=== PATIENT | female | born 1995 | race Caucasian/White ===

== ENCOUNTER 2016-09-18 | Emergency (ER) | payer MEDICAID, OTHER ==
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
[2016-09-18] MEDS ORDERED: IBUPROFEN 600 MG TABLET PO STA (00:53)
[2016-09-18] MEDS ORDERED: ACETAMINOPHEN 325 MG TABLET PO STA (00:54)
[2016-09-18] MEDS ORDERED: IBUPROFEN 600 MG TABLET PO ONE (01:00)
[2016-09-18] MEDS ORDERED: ACETAMINOPHEN 325 MG TABLET PO ONE (01:00)
[2016-09-18 01:07] VITALS: BP 135/72
[2016-09-18] MEDS ORDERED: HYDROcod/ACETAM 5/325 MG TABLET PO STA (01:52)
[2016-09-18] MEDS ORDERED: HYDROcod/ACETAM 5/325 MG TABLET ONE (01:58)
--- NOTE | 2016-09-18 02:14 | CT Preliminary Report ---
Exam: CT Facial Bones W/O IMPRESSION: 1. Left submandibular space edema. 2. Chronic appearing left maxillary sinus disease. 3. Otherwise normal maxillofacial CT. [facility] SITE ID: [id number]
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
== END 2016-09-18 02:15 | disposition home or self-care (01) ==
LOC: ED
DX: S10.93XA Contusion of unspecified part of neck, initial encounter (principal); Y04.8XXA Assault by other bodily force, initial encounter
CPT/HCPCS: 70486; 99282; 99283; A9270

== ENCOUNTER 2016-09-19 07:13 | Emergency (ER) | payer MEDICAID, OTHER ==
[2016-09-19] MEDS ORDERED: HYDROcod/ACETAM 5/325 MG TABLET PO STA (08:15)
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
[2016-09-19] MEDS ORDERED: HYDROcod/ACETAM 5/325 MG TABLET ONE (08:29)
[2016-09-19 08:35] VITALS: BP 121/64
== END 2016-09-19 08:37 | disposition home or self-care (01) ==
LOC: ED 07:13
DX: S00.83XA Contusion of other part of head, initial encounter (principal); Y08.89XA Assault by other specified means, initial encounter
CPT/HCPCS: 99283; A9270

== ENCOUNTER 2016-11-06 09:10 | Emergency (ER) | payer MEDICAID, OTHER ==
[2016-11-06 09:40] LABS: BILIRUBIN,URINE NEGATIVE (NEGATIVE)
[2016-11-06 09:51] LABS: UA w/ MICROSCOPIC CHARGE YES; UR CULTURE IF IND NOT INDICATED; WBC,URINE 0-3 /HPF (0-5)
[2016-11-06] MEDS ORDERED: DEXAMETHASONE 10 MG/ML VIAL PO STA (10:55)
[2016-11-06] MEDS ORDERED: oxyCOD/ACETAMIN 5 MG/325 MG TABLET PO STA (10:55)
[2016-11-06] MEDS ORDERED: CYCLOBENZAPRINE 10 MG TABLET PO STA (10:55)
[2016-11-06] MEDS ORDERED: LIDOCAINE PATCH 5% TOP STA (10:55)
--- NOTE | 2016-11-06 10:59 | ED Physician Documentation ---
History of Present Illness - Stated complaint Stated Complaint: BACK PAIN - Chief complaint Chief Complaint: Back Pain - Additonal information Additional information: hx from pt 21 f hx low back pain insidiuous onset worsening recently low back pain cristian R > L rad to lat hips and thighs no numbness no weakness except 2/2 pain no incontin hematuria or dysuria no abd pain no fever no dental work surgery IV meds or drugs denies preg Review of Systems Constitutional: denies: Fever, Chills Cardiac: denies: Chest pain / pressure Respiratory: denies: Dyspnea GI: denies: Abdominal Pain : denies: Dysuria, Incontinent, Hematuria, Now EGA Musculoskeletal: reports: Back pain Neurologic: denies: Focal weakness, Numbness Endocrine: denies: Easy bruising / bleeding Immunocompromised: denies: Immunocompromised PD PAST MEDICAL HISTORY - Past Medical History Neuro: Headache/migraine GI: GERD Psych: Depression, Anxiety Musculoskeletal: Other Derm: Psoriasis - Past Surgical History Past Surgical History: Yes HEENT: Tonsil/Adenoidectomy - Present Medications Home Medications: Ambulatory Orders Medication Instructions Recorded Confirmed Doxepin [SINEquan] 75 mg ORAL DAILY 09/18/16 11/06/16 Control 11/06/16 Cyclobenzaprine [Flexeril] 10 mg PO TID PRN #20 tablet 11/06/16 Lidocaine Patch 5% [Lidoderm Patch] 1 each TOP DAILY PRN #10 patch 11/06/16 predniSONE [Deltasone] 40 mg PO DAILY 5 Days 11/06/16 - Allergies Allergies/Adverse Reactions: Allergies Allergy/AdvReac Type Severity Reaction Status Date / Time No Known Drug Allergies Allergy Verified 11/06/16 09:22 - Social History Does the pt smoke?: No Smoking Status: Never smoker Does the pt drink ETOH?: Yes Does the pt have substance abuse?: Yes - Immunizations Immunizations are current?: Yes - POLST Patient has POLST: No POLST Status: Full Code PD ED PE NORMAL - Vitals Vital signs reviewed: Yes - General General: Alert and oriented X 3 - HEENT HEENT: PERRL - Neck Neck: Supple, no meningeal sign - Cardiac Cardiac: RRR - Respiratory Respiratory: No respiratory distress, Clear bilaterally - Abdomen Abdomen: Soft, Non tender, Other (no pulsatile mass) - Back Back: Other (diffuse low back pain, no focal spine pain redness warmth or swelling, limited ROM 2/2 pain) - Neuro Neuro: Other (denies sassle anesthesia, hip flex knee ext foot dorsi plantar great toe all 5/5 patellar DTR 2/4 no clonus, nl sensation, neg SLR cristian (not past knee)) Results - Vitals Vitals: Vital Signs - 24 hr 11/06/16 09:18 Temperature 36.5 C Heart Rate 86 Respiratory 16 Rate Blood Pressure 124/84 H O2 Saturation 96 Oxygen O2 Source Room air - Labs Labs: Laboratory Tests 11/06/16 09:32 Urine Color YELLOW Urine Clarity CLOUDY Urine pH 6.0 Ur Specific [place] >=1.030 H Urine Protein NEGATIVE Urine Glucose (UA) NEGATIVE Urine Ketones NEGATIVE Urine Occult Blood SMALL H Urine Nitrite NEGATIVE Urine Bilirubin NEGATIVE Urine Urobilinogen 0.2 (NORMAL) Ur Leukocyte Esterase NEGATIVE Urine RBC 0-5 Urine WBC 0-3 Ur Squamous Epith Cells MOD Squamous H Amorphous Sediment Marked Urine Bacteria Few Ur Microscopic Review INDICATED Urine Culture Comments NOT INDICATED Departure - Departure Disposition: 01 Home, Self Care Clinical Impression: Back pain Qualifiers: Back pain location: low back pain Chronicity: acute Back pain laterality: bilateral Sciatica presence: with sciatica Sciatica laterality: bilateral sciatica Qualified Code(s): M54.42 - Lumbago with sciatica, left side; M54.41 - Lumbago with sciatica, right side Condition: Good Instructions: ED Neck Back Pain General Prescriptions: predniSONE [Deltasone] 40 mg PO DAILY 5 Days Cyclobenzaprine [Flexeril] 10 mg PO TID PRN #20 tablet PRN Reason: Spasms Lidocaine Patch 5% [Lidoderm Patch] 1 each TOP DAILY PRN #10 patch PRN Reason: Pain Comments: Please rest and ice your back 20 minutes at time As we discussed, plain xrays will not be useful in the scenerio. If you do not improve you may need a MRI but you will need to follow up with [facility] for a recheck to determine if that will be needed Forms: Activity restrictions
[2016-11-06] MEDS ORDERED: oxyCOD/ACETAMIN 5 MG/325 MG TABLET PO ONE (11:05)
[2016-11-06] MEDS ORDERED: LIDOCAINE PATCH 5% TOP ONE (11:06)
[2016-11-06] MEDS ORDERED: DEXAMETHASONE 10 MG/ML VIAL ONE (11:06)
[2016-11-06] MEDS ORDERED: CYCLOBENZAPRINE 10 MG TABLET PO ONE (11:06)
[2016-11-06 11:28] VITALS: BP 122/56
== END 2016-11-06 11:33 | disposition home or self-care (01) ==
LOC: ED 09:10
DX: M54.41 Lumbago with sciatica, right side (principal); K21.9 Gastro-esophageal reflux disease without esophagitis
CPT/HCPCS: 81001; 99283; A9270; 81003; 87086

== ENCOUNTER 2016-11-18 15:33 | Outpatient (CLI) | payer MEDICAID ==
--- NOTE | 2016-11-18 16:09 | XRAY Report ---
TWO VIEW THORACIC SPINE: 11/18/2016 CLINICAL INDICATION: Fall, pain. FINDINGS: Frontal and lateral views of the thoracic spine demonstrate mild S-shaped scoliosis. There is no evidence of compression fracture. The disk spaces are preserved. IMPRESSION: MILD S-SHAPED SCOLIOSIS OF THE THORACIC SPINE. JOB #: [id number] EXT JOB #:[id number]
--- NOTE | 2016-11-18 16:11 | XRAY Report ---
THREE VIEW LUMBAR SPINE: 11/18/2016 CLINICAL INDICATION: Fall, pain. FINDINGS: AP, lateral, and coned down views of the lumbar spine demonstrate normal height and alignm ent of the vertebral bodies. The disk spaces are preserved. There is no evidence of fracture. There i s sacralization of L5, with pseudoarthrosis formation. IMPRESSION: NO EVIDENCE OF FRACTURE. JOB #: [id number] EXT JOB #:[id number]
== END 2016-11-18 15:34 | disposition home or self-care (01) ==
LOC: DI 15:33
PROVIDERS: ATTEND Nurse Practitioner Gerontology
DX: M54.5 Low back pain (principal); M41.84 Other forms of scoliosis, thoracic region
CPT/HCPCS: 72070; 72100

== ENCOUNTER 2017-07-09 14:26 | Emergency (ER) | payer MEDICAID ==
[2017-07-09 14:51] VITALS: BP 124/80
[2017-07-09 15:27] LABS: HCG UR QUAL NEGATIVE
--- NOTE | 2017-07-09 16:29 | XRAY Report ---
EXAM: RIGHT TIBIA/FIBULA RADIOGRAPHY EXAM DATE: 07/09/2017 04:23 PM. CLINICAL HISTORY: Trauma. Fall. Anterior right lower leg mid shaft contusion/pain. COMPARISON: None. TECHNIQUE: 2 views. FINDINGS: Bones: Small plantar calcaneal spur. No fracture or bone lesion. Joints: Normal alignment at the knee and ankle. Soft Tissues: Normal. No evident focal soft tissue swelling. IMPRESSION: No acute bony abnormality. [facility] Referring Provider Line: [phone] SITE ID: [id number]
--- NOTE | 2017-07-09 16:29 | XRAY Preliminary Report ---
Exam: XR TIB/FIB RT IMPRESSION: No acute bony abnormality. [facility] SITE ID: [id number]
--- NOTE | 2017-07-09 16:50 | ED Physician Documentation ---
PD HPI LOWER EXT INJURY - Stated complaint Stated Complaint: RT SWELL LEG PX - Chief complaint Chief Complaint: Ext Problem - History obtained from History obtained from: Patient - History of Present Illness PD HPI LOW EXT INJURY LOCATION: Right, Lower leg Type of injury: Blunt / blow Where injury occurred: Work Timing - onset: Today Timing - duration: Hours Timing - details: Abrupt onset, Still present Improved by: Rest, Immobilization Worsened by: Moving, Palpating Associated symptoms: Swelling, Discolored. No: Weakness, Numbness Similar symptoms before: Has not had sx before Recently seen: Not recently seen - Additional information Additional information: 22 year old female who works for [employer] was getting into the back of her truck today she had her right foot up on the truck went to put her left foot up under her right foot slipped she came down hard on the midshaft of her right tibia. She does a lot of pain associated with this and is having some pain with ambulation pain goes all the way from the foot all the way up to the hip. Review of Systems Constitutional: denies: Fever Eyes: denies: Decreased vision Ears: denies: Ear pain Nose: denies: Congestion Throat: denies: Sore throat Respiratory: denies: Cough GI: denies: Vomiting Musculoskeletal: reports: Extremity pain, Pain with weight bearing. denies: Neck pain, Back pain Neurologic: denies: Generalized weakness, Focal weakness, Numbness PD PAST MEDICAL HISTORY - Past Medical History Past Medical History: Yes GI: GERD Psych: Depression, Anxiety Musculoskeletal: Other Derm: Psoriasis - Past Surgical History Past Surgical History: Yes HEENT: Tonsil/Adenoidectomy - Present Medications Home Medications: Ambulatory Orders Medication Instructions Recorded Confirmed HYDROcod/ACETAM 5/325 [[place] 5/325] 1 - 2 ea PO Q6H PRN #15 tablet 07/09/17 - Allergies Allergies/Adverse Reactions: Allergies Allergy/AdvReac Type Severity Reaction Status Date / Time No Known Drug Allergies Allergy Verified 07/09/17 14:50 - Social History Does the pt smoke?: No Smoking Status: Never smoker Does the pt drink ETOH?: Yes Does the pt have substance abuse?: Yes - Immunizations Immunizations are current?: Yes - POLST Patient has POLST: No POLST Status: Full Code PD ED PE NORMAL - Vitals Vital signs reviewed: Yes (normal ) - General General: No acute distress, Well developed/nourished - HEENT HEENT: Atraumatic, PERRL, EOMI - Respiratory Respiratory: No respiratory distress - Derm Derm: Normal color, Warm and dry, No rash - Extremities Extremities: No deformity, No edema, Other (There is exquisit tenderness to the anterior calf on the right side. There is some ecchymosis present as well. The distal n/v is intact and the knee and hip joint are without pain specifically but with referred pain to the calf. ) - Neuro Neuro: No motor deficit, No sensory deficit Eye Opening: Spontaneous Motor: Obeys Commands Verbal: Oriented GCS Score: 15 - Psych Psych: Normal mood, Normal affect Results - Vitals Vitals: Vital Signs - 24 hr 07/09/17 14:46 Temperature 36.1 C L Heart Rate 78 Respiratory 16 Rate Blood Pressure 124/80 O2 Saturation 99 Oxygen O2 Source Room air - Labs Labs: Laboratory Tests 07/09/17 15:03 Ur Specific [place] >=1.030 H Urine HCG, Qual NEGATIVE - Rads (name of study) right tib/fib Radiology: Prelim report reviewed (Impression: No acute bony abnormality.), EMP read indepedently, See rad report PD MEDICAL DECISION MAKING - ED course Complexity details: considered differential, d/w patient ED course: 22-year-old female with a contusion of the right calf has significant pain associated with this and she is having some difficulty with ambulation. She is placed on some crutches will give her some pain medication and there is no evidence for fracture. She is excused from work for 3 days. Departure - Departure Disposition: 01 Home, Self Care Clinical Impression: Contusion of right calf Qualifiers: Encounter type: initial encounter Qualified Code(s): S80.11XA - Contusion of right lower leg, initial encounter Condition: Stable Instructions: ED Contusion Lower Ext Follow-Up: [facility] [Provider Group] Prescriptions: HYDROcod/ACETAM 5/325 [[place] 5/325] 1 - 2 ea PO Q6H PRN #15 tablet PRN Reason: Pain Forms: Activity restrictions
== END 2017-07-09 17:10 | disposition home or self-care (01) ==
LOC: ED 14:26
DX: S80.11XA Contusion of right lower leg, initial encounter (principal); W22.8XXA Striking against or struck by other objects, initial encounter; Y99.0 Civilian activity done for income or pay; K21.9 Gastro-esophageal reflux disease without esophagitis
CPT/HCPCS: 81025; 99283

== ENCOUNTER 2017-07-15 16:36 | Emergency (ER) | payer MEDICAID ==
--- NOTE | 2017-07-15 16:47 | ED Physician Documentation ---
PD HPI URI - Stated complaint Stated Complaint: SOA - Chief complaint Chief Complaint: Resp - History obtained from History obtained from: Patient - History of Present Illness Timing - onset: How many days ago Timing duration: Days Timing details: Gradual onset, Still present Associated symptoms: Nasal congestion, Dry cough, Dyspnea. No: Fever, Hemoptysis, Chest pain, NVD Contributing factors: COPD / asthma (not ongoing, but intermittent with URIs.). No: Sick contact, Travel, Immunocompromised Similar symptoms before: Diagnosis (URIs with asthma; does not have MDI currently) Recently seen: Not recently seen Review of Systems Constitutional: denies: Fever Nose: reports: Congestion. denies: Rhinorrhea / runny nose Throat: denies: Sore throat Cardiac: denies: Chest pain / pressure Respiratory: reports: Dyspnea, Cough, Wheezing GI: denies: Abdominal Pain, Nausea, Vomiting, Diarrhea : denies: Dysuria, Frequency Skin: denies: Rash, Lesions PD PAST MEDICAL HISTORY - Past Medical History Cardiovascular: None Respiratory: Asthma Neuro: None Endocrine/Autoimmune: None GI: GERD Psych: Depression, Anxiety Musculoskeletal: Other Derm: Psoriasis - Past Surgical History Past Surgical History: Yes HEENT: Tonsil/Adenoidectomy - Present Medications Home Medications: Ambulatory Orders Medication Instructions Recorded Confirmed Albuterol Sulf [Ventolin Hfa 1 - 2 puffs INH Q4HR PRN #1 inhaler 07/15/17 Inhaler] Benzonatate [Tessalon] 100 mg PO TID PRN #25 capsule 07/15/17 Cetirizine [ZyrTEC] 10 mg PO DAILY #20 tablet 07/15/17 Dexamethasone [Decadron] 4 mg PO DAILY #5 tablet 07/15/17 - Allergies Allergies/Adverse Reactions: Allergies Allergy/AdvReac Type Severity Reaction Status Date / Time No Known Drug Allergies Allergy Verified 07/15/17 16:43 - Social History Does the pt smoke?: No Smoking Status: Never smoker Does the pt drink ETOH?: Yes Does the pt have substance abuse?: Yes - Immunizations Immunizations are current?: Yes - POLST Patient has POLST: No POLST Status: Full Code PD ED PE NORMAL - Vitals Vital signs reviewed: Yes - General General: Alert and oriented X 3, No acute distress, Well developed/nourished - HEENT HEENT: Ears normal, Pharynx benign - Neck Neck: Supple, no meningeal sign, No adenopathy - Cardiac Cardiac: RRR, No murmur - Respiratory Respiratory: No respiratory distress. No: Clear bilaterally (diffuse wheezing throughout expiration. ) - Abdomen Abdomen: Soft, Non tender - Back Back: No CVA TTP - Derm Derm: Normal color, Warm and dry - Extremities Extremities: No deformity, No tenderness to palpate, No edema, No calf tenderness / cord - Neuro Neuro: Alert and oriented X 3, No motor deficit, Normal speech Results - Vitals Vitals: Vital Signs - 24 hr 07/15/17 07/15/17 07/15/17 16:42 17:14 17:59 Temperature 36.2 C L Heart Rate 108 H 86 108 H Respiratory 18 22 20 Rate Blood Pressure 137/107 H O2 Saturation 96 07/15/17 18:19 Temperature 36.7 C Heart Rate 95 Respiratory 19 Rate Blood Pressure 129/69 O2 Saturation 95 Oxygen O2 Source Room air PD MEDICAL DECISION MAKING - ED course Complexity details: re-evaluated patient (improved with nebs x 2.), considered differential (consider viral illness versus environmental allergies. ), d/w patient Departure - Departure Disposition: Home, Self Care Clinical Impression: Wheezing Upper respiratory infection Qualifiers: URI type: unspecified URI Qualified Code(s): J06.9 - Acute upper respiratory infection, unspecified Condition: Stable Record reviewed to determine appropriate education?: Yes Instructions: ED Bronchitis Asthmatic Prescriptions: Albuterol Sulf [Ventolin Hfa Inhaler] 1 - 2 puffs INH Q4HR PRN #1 inhaler PRN Reason: Shortness Of Air/Wheezing Benzonatate [Tessalon] 100 mg PO TID PRN #25 capsule PRN Reason: Cough Cetirizine [ZyrTEC] 10 mg PO DAILY #20 tablet Dexamethasone [Decadron] 4 mg PO DAILY #5 tablet Comments: This may be allergies or more likely a chest cold. We treated with anti- inflammatories of steroid called Decadron for 5 more days. Use an albuterol inhaler 2 puffs 4 times a day at least and extra times if needed for wheezing. Continue this for 7-10 days and then to just as needed. Tessalon if needed for cough. Cetirizine for congestion and would help if there is an allergy component. Recheck if not improving over the next several days. It does not sound bacterial and I do not see antibiotics been helpful. Discharge Date/Time: 07/15/17 18:19
[2017-07-15] MEDS ORDERED: BENZONATATE 100 MG CAPSULE PO STA (17:00)
[2017-07-15] MEDS ORDERED: DEXAMETHASONE 10 MG/ML VIAL PO STA (17:00)
[2017-07-15] MEDS ORDERED: ALBUTEROL NEB 2.5 MG/3 ML INH STA ×2 (17:00→17:34)
[2017-07-15] MEDS ORDERED: CETIRIZINE 10 MG TABLET PO STA (17:00)
[2017-07-15 18:21] VITALS: BP 129/69
== END 2017-07-15 18:19 | disposition home or self-care (01) ==
LOC: ED 16:36
DX: R06.2 Wheezing (principal); J06.9 Acute upper respiratory infection, unspecified
CPT/HCPCS: 94640; 94664; 99283; A9270

== ENCOUNTER 2017-07-21 01:07 | Emergency (ER) | payer MEDICAID ==
[2017-07-21] MEDS ORDERED: IPRATROPIUM/ALBUTEROL 3 ML NEB INH STA (01:11)
[2017-07-21] MEDS ORDERED: methylPREDNISolone SUCCINATE 125 MG/2 ML VIAL IVP STA ×2 (01:11→06:36)
[2017-07-21] MEDS ORDERED: ALBUTEROL NEB 2.5 MG/3 ML INH STA ×4 (01:48→05:46)
[2017-07-21] MEDS ORDERED: TERBUTALINE 1 MG/ML VIAL SUBQ ONE (01:48)
[2017-07-21] MEDS ORDERED: MAGNESIUM SULFATE 2 GRAM 2 GM/50 ML BAG IV ONE (01:48)
--- NOTE | 2017-07-21 01:51 | ED Physician Documentation ---
PD HPI DYSPNEA - Stated complaint Stated Complaint: DIFF BREATHING - Chief complaint Chief Complaint: Resp - History obtained from History obtained from: Patient - History of Present Illness Timing - onset: How many days ago (4) Timing - onset during: Rest, Light activity Timing - details: Gradual onset, Still present, Intermittant Inciting event(s): Exposure (ie smoke) Improved by: O2, Inhaler/neb Worsened by: Exertion, Coughing Associated symptoms: Wheezing Similar symptoms before: Work up / diagnostics, Treatment Recently seen: Emergency Dept - Additional information Additional information: Patient is a 22 year old female presenting to the emergency department for wheezing and shortness of breath. Patient was seen in the emergency department about 4 days ago. patient was treated and discharged. patient states that over the last three days she has used almost an entire inhaler. Patient states that she normally has bronchitis once a year. Review of Systems Ten Systems: 10 systems reviewed and negative Respiratory: reports: Dyspnea, Wheezing PD PAST MEDICAL HISTORY - Past Medical History Past Medical History: Yes Cardiovascular: None Respiratory: Asthma Neuro: None Endocrine/Autoimmune: None GI: GERD Psych: Depression, Anxiety Musculoskeletal: Other Derm: Psoriasis - Past Surgical History Past Surgical History: Yes HEENT: Tonsil/Adenoidectomy - Present Medications Home Medications: Ambulatory Orders Medication Instructions Recorded Confirmed Albuterol Sulf [Ventolin Hfa 1 - 2 puffs INH Q4HR PRN #1 inhaler 07/15/17 Inhaler] Benzonatate [Tessalon] 100 mg PO TID PRN #25 capsule 07/15/17 Cetirizine [ZyrTEC] 10 mg PO DAILY #20 tablet 07/15/17 Dexamethasone [Decadron] 4 mg PO DAILY #5 tablet 07/15/17 Albuterol Sulfate [Proventil Hfa 1 - 2 puffs INH Q4H PRN #1 inhaler 07/21/17 Inhaler] predniSONE [Prednisone] 40 mg PO DAILY 5 Days tablet 07/21/17 - Allergies Allergies/Adverse Reactions: Allergies Allergy/AdvReac Type Severity Reaction Status Date / Time No Known Drug Allergies Allergy Verified 07/15/17 16:43 - Social History Does the pt smoke?: No Smoking Status: Never smoker Does the pt drink ETOH?: Yes Does the pt have substance abuse?: Yes - Immunizations Immunizations are current?: Yes - POLST Patient has POLST: No POLST Status: Full Code PD ED PE NORMAL - Vitals Vital signs reviewed: Yes - General General: Alert and oriented X 3 - HEENT HEENT: Atraumatic - Neck Neck: Supple, no meningeal sign - Cardiac Cardiac: RRR - Abdomen Abdomen: Soft - Derm Derm: Normal color, Warm and dry - Extremities Extremities: No deformity, No edema, No calf tenderness / cord - Neuro Neuro: Alert and oriented X 3 Eye Opening: Spontaneous - Psych Psych: Normal mood PD ED PE EXPANDED - Respiratory Respiratory: Accessory mm use, Wheezing, Right upper lobe, Right middle lobe, Right lower lobe, Left upper lobe, Left lower lobe Results - Vitals Vitals: Vital Signs - 24 hr 07/21/17 07/21/17 07/21/17 01:09 01:22 03:29 Temperature 36.6 C Heart Rate 108 H 95 88 Respiratory 26 H 20 18 Rate Blood Pressure 124/56 L 128/63 O2 Saturation 95 97 07/21/17 04:30 Temperature Heart Rate 86 Respiratory 17 Rate Blood Pressure 141/74 H O2 Saturation 94 Oxygen O2 Source Room air - Rads (name of study) chest x-ray Radiology: Final report received (no acute findings) PD MEDICAL DECISION MAKING - ED course Complexity details: reviewed old records, reviewed results, re-evaluated patient , considered differential, d/w patient ED course: Patient was seen and examined at bedside. Patient was started with 6mg duoneb and solumedrol. patient was placed on a monitor. chest x-ray was ordered. When patient returned from imaging the results were reviewed and there were no acute abnormalities. Patient continued to have diffuse wheezing and was treated with 5mg of albuterol, magnesium sulfate and terbutaline. Throughout patient's 6 hr ER stay she ws treated with 20mg of albuterol in total, magnesium , terbutaline and two doses of solumedrol. Patient responded well to the therapy. Upon discharge patient's wheezing had diminished and she was oxygenating well on room air. Patient was stable for discharge with outpatient follow up. - Sepsis Event Current Stage of Sepsis: Ruled out Vital Signs: Vital Signs - 24 hr 07/21/17 07/21/17 07/21/17 01:09 01:22 03:29 Temperature 36.6 C Heart Rate 108 H 95 88 Respiratory 26 H 20 18 Rate Blood Pressure 124/56 L 128/63 O2 Saturation 95 97 07/21/17 04:30 Temperature Heart Rate 86 Respiratory 17 Rate Blood Pressure 141/74 H O2 Saturation 94 Oxygen O2 Source Room air Departure - Departure Disposition: 01 Home, Self Care Clinical Impression: Wheezing Condition: Stable Instructions: ED Bronchitis Asthmatic Follow-Up: primary,care provider [Other] - Within 3 Days Prescriptions: Albuterol Sulfate [Proventil Hfa Inhaler] 1 - 2 puffs INH Q4H PRN #1 inhaler PRN Reason: Shortness Of Air/Wheezing predniSONE [Prednisone] 40 mg PO DAILY 5 Days tablet Comments: You will be on the steroids for the next 5 days. You can use your inhaler up to every two hours as needed but if you are using it more frequently than that or your symptoms are worsening you should return to the emergency department. You should follow up with your doctor early next week and discuss prescribing a nebulizer. Forms: Activity restrictions
--- NOTE | 2017-07-21 01:59 | XRAY Preliminary Report ---
Exam: XR CHEST 2 VIEW X-RAY IMPRESSION: Stable negative 2-view chest radiography. [facility] SITE ID: [id number]
--- NOTE | 2017-07-21 02:14 | XRAY Report ---
EXAM: CHEST RADIOGRAPHY EXAM DATE: 07/21/2017 01:41 AM. CLINICAL HISTORY: Shortness of breath. COMPARISON: Chest CT 09/22/2013, x-ray 06/02/2010. TECHNIQUE: 2 views. FINDINGS: Lungs/Pleura: No focal opacities evident. No pleural effusion. No pneumothorax. Normal volumes. Mediastinum: Heart and mediastinal contours are unremarkable. Other: None. IMPRESSION: Stable negative 2-view chest radiography. [facility] Referring Provider Line: [phone] SITE ID: [id number]
[2017-07-21 06:43] VITALS: BP 132/83
== END 2017-07-21 06:49 | disposition home or self-care (01) ==
LOC: ED 01:07
DX: R06.2 Wheezing (principal); K21.9 Gastro-esophageal reflux disease without esophagitis
CPT/HCPCS: 71046; 96365; 96375; 96376; 99283

== ENCOUNTER 2017-09-13 15:41 | Emergency (ER) | payer OTHER, MEDICAID ==
[2017-09-13] MEDS ORDERED: HYDROcod/ACETAM 5/325 MG TABLET PO STA (16:06)
--- NOTE | 2017-09-13 16:09 | ED Physician Documentation ---
PD HPI LOWER EXT INJURY - Stated complaint Stated Complaint: RT LEG SWELLING/NUMBNESS - Chief complaint Chief Complaint: Ext Problem - History obtained from History obtained from: Patient - History of Present Illness PD HPI LOW EXT INJURY LOCATION: Right (About 2 months ago fell at work and hit [place] on edge of truck. Seen here, xrays were negative. She got better after a couple of weeks and then the pain recurred again, now with a sensation of swelling from the ankle up to the thigh. It is not associated with chest pain or trouble breathing.) Review of Systems Constitutional: denies: Fever, Chills Cardiac: denies: Chest pain / pressure, Palpitations Respiratory: denies: Dyspnea, Cough GI: denies: Abdominal Pain PD PAST MEDICAL HISTORY - Past Medical History Cardiovascular: None Respiratory: Asthma Neuro: None Endocrine/Autoimmune: None GI: GERD Psych: Depression, Anxiety Musculoskeletal: Other Derm: Psoriasis - Past Surgical History Past Surgical History: Yes HEENT: Tonsil/Adenoidectomy - Present Medications Home Medications: Ambulatory Orders Medication Instructions Recorded Confirmed Albuterol Sulf [Ventolin Hfa 1 - 2 puffs INH Q4HR PRN #1 inhaler 07/15/17 Inhaler] Albuterol Sulfate [Proventil Hfa 1 - 2 puffs INH Q4H PRN #1 inhaler 07/21/17 Inhaler] Fexofenadine HCl [Nilsa Allergy] 09/13/17 HYDROcod/ACETAM 5/325 [[place] 5/325] 1 - 2 ea PO Q6H PRN #10 tablet 09/13/17 Ibuprofen [Motrin] 800 mg PO Q8H PRN #30 tablet 09/13/17 - Allergies Allergies/Adverse Reactions: Allergies Allergy/AdvReac Type Severity Reaction Status Date / Time No Known Drug Allergies Allergy Verified 07/15/17 16:43 - Social History Does the pt smoke?: No Smoking Status: Never smoker Does the pt drink ETOH?: Yes Does the pt have substance abuse?: Yes - Immunizations Immunizations are current?: Yes - POLST Patient has POLST: No POLST Status: Full Code PD ED PE NORMAL - Vitals Vital signs reviewed: Yes - General General: Alert and oriented X 3, No acute distress - Extremities Extremities: Other (She kind of has diffuse tenderness that does not follow a specific anatomic structure throughout the right leg without visible pedal edema or discoloration. She has bounding pedal pulses.) - Neuro Neuro: Alert and oriented X 3, Normal speech Results - Vitals Vitals: Vital Signs - 24 hr 09/13/17 15:45 Temperature 36.4 C L Heart Rate 80 Respiratory 18 Rate Blood Pressure 122/57 L O2 Saturation 99 Oxygen O2 Source Room air - Labs Labs: Laboratory Tests 09/13/17 16:20 Ur Specific [place] 1.020 Urine HCG, Qual NEGATIVE - Rads (name of study) RLE duplex Radiology: EMP read contemporaneously (negative) PD MEDICAL DECISION MAKING - Sepsis Event Vital Signs: Vital Signs - 24 hr 09/13/17 15:45 Temperature 36.4 C L Heart Rate 80 Respiratory 18 Rate Blood Pressure 122/57 L O2 Saturation 99 Oxygen O2 Source Room air Departure - Departure Disposition: 01 Home, Self Care Clinical Impression: Right leg pain Condition: Good Record reviewed to determine appropriate education?: Yes Instructions: ED Acute Pain UKO Prescriptions: HYDROcod/ACETAM 5/325 [[place] 5/325] 1 - 2 ea PO Q6H PRN #10 tablet PRN Reason: Pain Ibuprofen [Motrin] 800 mg PO Q8H PRN #30 tablet PRN Reason: PAIN &/OR FEVER Comments: Call your doctor to arrange a follow-up appointment, make the next available appointment. In the interim, return anytime if worse or if new symptoms develop. Forms: Activity restrictions
[2017-09-13 16:58] LABS: HCG UR QUAL NEGATIVE
--- NOTE | 2017-09-13 18:25 | Ultrasound Report ---
Procedure Date: 09/13/2017 Accession Number: [id number] / [id number] Procedure: US - Duplex Ext Veins Right CPT Code: FULL RESULT: EXAM: RIGHT LOWER EXTREMITY VENOUS ULTRASOUND EXAM DATE: 09/13/2017 05:31 PM. CLINICAL HISTORY: Leg pain/swelling. COMPARISON: None. TECHNIQUE: Real-time sonographic vascular imaging was performed by the blood tester fowl through the lower extremity utilizing both color-flow and Doppler spectral analysis. Multiple inbound call center representative static images were saved for review. FINDINGS: Common Femoral Vein (CFV): Normal. CFV-GSV Junction: Normal. Profunda Femoral Vein (PFV): Normal. Femoral Vein (FV) Prox: Normal. Femoral Vein (FV) Mid: Normal. Femoral Vein (FV) Dist: Normal. Popliteal Vein: Normal. Posterior Tibial Veins: Normal. Peroneal Veins: Normal. Contralateral Side CFV: Normal. Other: None. IMPRESSION: No evidence for deep venous thrombosis. [facility]
[2017-09-13 18:26] VITALS: BP 120/60
== END 2017-09-13 18:25 | disposition home or self-care (01) ==
LOC: ED 15:41
DX: M79.661 Pain in right lower leg (principal)
CPT/HCPCS: 81025; 93971; 99283; A9270

== ENCOUNTER 2017-11-29 14:46 | Outpatient (CLI) | payer MEDICAID ==
--- NOTE | 2017-11-29 15:38 | XRAY Report ---
Reason: PAIN IN RIGHT LOWER LEG Procedure Date: 11/29/2017 Accession Number: [id number] / [id number] Procedure: XRN - Tib/Fib RT CPT Code: FULL RESULT: EXAM: RIGHT TIBIA/FIBULA RADIOGRAPHY EXAM DATE: 11/29/2017 03:06 PM. CLINICAL HISTORY: PAIN IN RIGHT LOWER LEG. COMPARISON: None. TECHNIQUE: 2 views. FINDINGS: Bones: No fracture or bone lesion. Joints: The visualized knee and ankle joints are normal. No effusions. Soft Tissues: No soft tissue swelling. IMPRESSION: Negative tibia/fibula radiography. [facility]
== END 2017-11-29 14:47 | disposition home or self-care (01) ==
LOC: DI.N 14:46
PROVIDERS: ATTEND Physician Assistant Medical
DX: M79.661 Pain in right lower leg (principal)

== ENCOUNTER 2017-12-31 11:40 | Emergency (ER) | payer MEDICAID ==
[2017-12-31 11:48] VITALS: BP 128/78
[2017-12-31] MEDS ORDERED: HYDROcod/ACETAM 5/325 MG TABLET PO STA (12:00)
--- NOTE | 2017-12-31 12:07 | ED Physician Documentation ---
PD HPI LOWER EXT INJURY - Stated complaint Stated Complaint: LOWER BACK/R LEG PX - Chief complaint Chief Complaint: Back Pain - History obtained from History obtained from: Patient, Family - History of Present Illness PD HPI LOW EXT INJURY LOCATION: Right (.In June of this year she had an injury getting off or on a work truck. She has had persistent right lower extremity pain since then with workups including Doppler ultrasound and x-rays without pertinent findings. More recently the running diagnosis is sciatica and/or nerve pain. She is in physical therapy for same. She has increased pain today with pain in the right low back radiating into the right leg associated with numbness especially on the great toe side of the right foot. She denies bowel or bladder incontinence or saddle anesthesia. There is no possibility of . She denies fevers. No drug use.) Review of Systems Constitutional: denies: Fever, Chills GI: denies: Abdominal Pain, Nausea, Vomiting : reports: Reviewed and negative PD PAST MEDICAL HISTORY - Past Medical History Cardiovascular: None Respiratory: Asthma Neuro: None Endocrine/Autoimmune: None GI: GERD Psych: Depression, Anxiety Musculoskeletal: Other Derm: Psoriasis - Past Surgical History Past Surgical History: Yes HEENT: Tonsil/Adenoidectomy - Present Medications Home Medications: Ambulatory Orders Medication Instructions Recorded Confirmed Albuterol Sulf [Ventolin Hfa 1 - 2 puffs INH Q4HR PRN #1 inhaler 07/15/17 Inhaler] Albuterol Sulfate [Proventil Hfa 1 - 2 puffs INH Q4H PRN #1 inhaler 07/21/17 Inhaler] Fexofenadine HCl [Nilsa Allergy] 09/13/17 Gabapentin 100 mg PO TID #60 capsule 12/31/17 Hydrocodone/Acetaminophen 1 - 2 tab PO Q6H PRN #20 tablet 12/31/17 [Hydrocodone-Acetamin 5-325 mg] Ibuprofen [Motrin] 800 mg PO Q8H PRN #30 tablet 12/31/17 metFORMIN [Glucophage] 500 mg PO TID 12/31/17 12/31/17 predniSONE [Deltasone] 20 mg PO [id number] #21 tab 12/31/17 - Allergies Allergies/Adverse Reactions: Allergies Allergy/AdvReac Type Severity Reaction Status Date / Time No Known Drug Allergies Allergy Verified 12/31/17 11:47 - Social History Does the pt smoke?: No Smoking Status: Never smoker Does the pt drink ETOH?: Yes Does the pt have substance abuse?: Yes - Immunizations Immunizations are current?: Yes - POLST Patient has POLST: No POLST Status: Full Code PD ED PE NORMAL - Vitals Vital signs reviewed: Yes - General General: Alert and oriented X 3, No acute distress - Back Back: No spinal TTP - Extremities Extremities: Other (She has diminished sensation in the right L4 distribution but not absent sensation. Her reflexes both Achilles and patellar are brisk on both sides and strength is symmetric throughout.) - Neuro Neuro: Alert and oriented X 3, Normal speech Results - Vitals Vitals: Vital Signs - 24 hr 12/31/17 11:45 Temperature 37 C Heart Rate 88 Respiratory 18 Rate Blood Pressure 128/78 O2 Saturation 98 Oxygen O2 Source Room air Departure - Departure Disposition: 01 Home, Self Care Clinical Impression: Sciatica Qualifiers: Laterality: right Qualified Code(s): M54.31 - Sciatica, right side Condition: Good Record reviewed to determine appropriate education?: Yes Instructions: ED Sciatica Prescriptions: Gabapentin 100 mg PO TID #60 capsule Hydrocodone/Acetaminophen [Hydrocodone-Acetamin 5-325 mg] 1 - 2 tab PO Q6H PRN #20 tablet PRN Reason: Pain Ibuprofen [Motrin] 800 mg PO Q8H PRN #30 tablet PRN Reason: PAIN &/OR FEVER predniSONE [Deltasone] 20 mg PO [id number] #21 tab Comments: Follow-up with your doctor, as discussed we are starting you on a low lowest dose of gabapentin which can go up significantly if it is helpful. As discussed also, discuss MRI with your physician if not better in the next month or so with conservative physical therapy.
== END 2017-12-31 12:13 | disposition home or self-care (01) ==
LOC: ED 11:40
DX: M54.31 Sciatica, right side (principal)
CPT/HCPCS: 99283; A9270

== ENCOUNTER 2018-01-06 06:26 | Emergency (ER) | payer MEDICAID ==
[2018-01-06] MEDS ORDERED: LIDOCAINE PATCH 5% TOP STA (07:18)
--- NOTE | 2018-01-06 07:29 | ED Physician Documentation ---
History of Present Illness - Stated complaint Stated Complaint: RT LEG PAIN - Chief complaint Chief Complaint: Ext Problem - Additonal information Additional information: hx from pt 22 f prior back pain and sciatica seen in ED numerous times most recently 6 days ago seen by PMD as well and goes to PT has not been able to get an outpt MRI to ER today for worsening lateral RLE pain, tingling to lower leg knee down lateral aspect, weakness and today urinary incont denies fever no IV IM meds drugs no recent dental work or surgery Review of Systems Constitutional: denies: Fever Cardiac: denies: Chest pain / pressure Respiratory: denies: Dyspnea GI: denies: Abdominal Pain : reports: Incontinent. denies: Now EGA Musculoskeletal: reports: Back pain, Extremity pain Neurologic: reports: Focal weakness, Numbness Endocrine: denies: Easy bruising / bleeding Immunocompromised: denies: Immunocompromised PD PAST MEDICAL HISTORY - Past Medical History Past Medical History: No Cardiovascular: None Respiratory: Asthma Neuro: None Endocrine/Autoimmune: None GI: GERD : None HEENT: None Psych: Depression, Anxiety Musculoskeletal: Other Derm: Psoriasis - Past Surgical History Past Surgical History: Yes HEENT: Tonsil/Adenoidectomy - Present Medications Home Medications: Ambulatory Orders Medication Instructions Recorded Confirmed Albuterol Sulf [Ventolin Hfa 1 - 2 puffs INH Q4HR PRN #1 inhaler 07/15/17 Inhaler] Albuterol Sulfate [Proventil Hfa 1 - 2 puffs INH Q4H PRN #1 inhaler 07/21/17 Inhaler] Fexofenadine HCl [Nilsa Allergy] 09/13/17 Gabapentin 100 mg PO TID #60 capsule 12/31/17 Hydrocodone/Acetaminophen 1 - 2 tab PO Q6H PRN #20 tablet 12/31/17 [Hydrocodone-Acetamin 5-325 mg] Ibuprofen [Motrin] 800 mg PO Q8H PRN #30 tablet 12/31/17 metFORMIN [Glucophage] 500 mg PO TID 12/31/17 12/31/17 predniSONE [Deltasone] 20 mg PO [id number] #21 tab 12/31/17 predniSONE [Deltasone] 20 mg PO [id number] #21 tab 01/06/18 - Allergies Allergies/Adverse Reactions: Allergies Allergy/AdvReac Type Severity Reaction Status Date / Time No Known Drug Allergies Allergy Verified 01/06/18 06:42 - Social History Does the pt smoke?: No Smoking Status: Never smoker Does the pt drink ETOH?: Yes Does the pt have substance abuse?: Yes - Immunizations Immunizations are current?: Yes - POLST Patient has POLST: No POLST Status: Full Code PD ED PE NORMAL - Vitals Vital signs reviewed: Yes - General General: Alert and oriented X 3 - HEENT HEENT: Atraumatic, PERRL - Neck Neck: Supple, no meningeal sign - Cardiac Cardiac: RRR, No murmur - Respiratory Respiratory: No respiratory distress - Abdomen Abdomen: Soft, Non tender - Back Back: No spinal TTP, Other (and no redness warmth swelling) - Derm Derm: Normal color - Extremities Extremities: No tenderness to palpate, No edema - Neuro Neuro: Alert and oriented X 3, induction machine setter 2-12 intact, Other (RLE : hip flexion 3/5 largely due to pain, knee ext 5/5, great toe ext 4/5, foot dorsi plantar flexion 5/5, dec sensation to lateral aspect RLE from knee down, no saddle anesthesia, nl sphincter tone, patellar DTR 1+/4, no clonus, + SLR) Results - Vitals Vitals: Vital Signs - 24 hr 01/06/18 01/06/18 06:38 13:54 Temperature 36.9 C Heart Rate 68 84 Respiratory 17 16 Rate Blood Pressure 127/73 147/87 H O2 Saturation 99 100 Oxygen O2 Source Room air - Labs Labs: Laboratory Tests 01/06/18 01/06/18 01/06/18 07:35 07:35 07:35 WBC 12.8 H RBC 4.47 Hgb 13.4 Hct 41.1 MCV 91.9 MCH 30.0 MCHC 32.7 RDW 13.6 Plt Count 362 MPV 8.6 Neut # (Auto) 9.9 H Lymph # (Auto) 2.0 [place] # (Auto) 0.8 Eos # (Auto) 0.0 Baso # (Auto) 0.1 Absolute Nucleated RBC 0.00 Nucleated RBC % 0.0 ESR 1 Sodium 137 Potassium 3.9 Chloride 106 Carbon Dioxide 25 Anion Gap 6.0 BUN 20 Creatinine 0.5 Estimated GFR (MDRD) 153 Glucose 103 H Calcium 8.5 C-Reactive Protein Serum HCG, Qual NEGATIVE Urine Color Urine Clarity Urine pH Ur Specific [place] Urine Protein Urine Glucose (UA) Urine Ketones Urine Occult Blood Urine Nitrite Urine Bilirubin Urine Urobilinogen Ur Leukocyte Esterase Ur Microscopic Review Urine Culture Comments 01/06/18 01/06/18 07:35 08:23 WBC RBC Hgb Hct MCV MCH MCHC RDW Plt Count MPV Neut # (Auto) Lymph # (Auto) [place] # (Auto) Eos # (Auto) Baso # (Auto) Absolute Nucleated RBC Nucleated RBC % ESR Sodium Potassium Chloride Carbon Dioxide Anion Gap BUN Creatinine Estimated GFR (MDRD) Glucose Calcium C-Reactive Protein < 1.0 Serum HCG, Qual Urine Color YELLOW Urine Clarity CLEAR Urine pH 6.5 Ur Specific [place] 1.025 Urine Protein NEGATIVE Urine Glucose (UA) NEGATIVE Urine Ketones NEGATIVE Urine Occult Blood NEGATIVE Urine Nitrite NEGATIVE Urine Bilirubin NEGATIVE Urine Urobilinogen 0.2 (NORMAL) Ur Leukocyte Esterase NEGATIVE Ur Microscopic Review NOT INDICATED Urine Culture Comments NOT INDICATED - Rads (name of study) MRI spine Radiology: See rad report (large HNP at L45 compressing L5 nerve root, no cauda equina) PD MEDICAL DECISION MAKING - ED course ED course: known sciaitica now progressed to incont will need MRI non con should suffice - no fever or risk factors for epidural abscess unsure of can be done at on a holiday weekend if not will need transfer Departure - Departure Disposition: 01 Home, Self Care Clinical Impression: Sciatica Qualifiers: Laterality: right Qualified Code(s): M54.31 - Sciatica, right side Condition: Good Instructions: ED Sciatica, ED Disk Intervertebral Herniated Prescriptions: predniSONE [Deltasone] 20 mg PO [id number] #21 tab Comments: The MRI shows you have a large herniated disk at L45 compressing the nerve root and causing sciatica You do not need emergent surgery but I recommend your PMD refer you to a security systems specialist. I have prescribed steroids to decrease the nerve inflammation. Continue your gabapentin And you can take tylenol or the vicodin previously prescribed for pain Forms: Activity restrictions Discharge Date/Time: 01/06/18 13:55
[2018-01-06 07:42] LABS: BASOPHILS # (AUTO) 0.1 10^3/uL (0.0-0.1); BASOPHILS % (AUTO) 0.5 %; EOSINOPHILS % (AUTO) 0.2 %; HGB - HEMOGLOBIN 13.4 g/dL (12.0-16.0); LYMPHOCYTES % (AUTO) 15.6 %; MEAN CORPUSCULAR HGB CONC 32.7 g/dL (32.0-36.0); MEAN CORPUSCULAR VOLUME 91.9 fL (81.0-99.0); MEAN PLATELET VOLUME 8.6 fL (7.9-10.8); MONOCYTES # (AUTO) 0.8 10^3/uL (0.0-1.0); MONOCYTES % (AUTO) 6.5 %; NEUTROPHILS # (AUTO) 9.9 10^3/uL (1.5-6.6); NEUTROPHILS % (AUTO) 77.2 %; PLT - PLATELET COUNT 362 10^3/uL (130-450); RED BLOOD COUNT 4.47 10^6/uL (4.20-5.40); RED CELL DISTRIBUTION WIDTH 13.6 % (12.0-15.0); WHITE BLOOD COUNT 12.8 x10^3/uL (4.8-10.8)
[2018-01-06 08:01] LABS: BUN - BLOOD UREA NITROGEN 20 mg/dL (6-20); CALCIUM 8.5 mg/dL (8.5-10.3); CARBON DIOXIDE - CO2 25 mmol/L (21-32); CHLORIDE 106 mmol/L (101-111); CREATININE 0.5 mg/dL (0.4-1.0); GFR - MDRD 153 (>89); GLUCOSE 103 mg/dL (70-100); SODIUM 137 mmol/L (135-145)
[2018-01-06 08:04] LABS: HCG,QUALITATIVE BLOOD NEGATIVE
[2018-01-06] MEDS: DEXAMETHASONE 10 MG/ML VIAL PO STA ×2 (08:14→08:41)
[2018-01-06] MEDS: KETOROLAC 60 MG/2 ML VIAL IVP STA ×2 (08:22→08:43)
[2018-01-06 08:27] LABS: BILIRUBIN,URINE NEGATIVE (NEGATIVE); GLUCOSE, URINE (UA) NEGATIVE (NEGATIVE); KETONES,URINE (UA) NEGATIVE (NEGATIVE); LEUKOCYTE ESTERASE, URINE NEGATIVE (NEGATIVE); NITRITE,URINE NEGATIVE (NEGATIVE); OCCULT BLOOD,URINE NEGATIVE (NEGATIVE); PH,URINE 6.5 PH (5.0-7.5); PROTEIN,URINE NEGATIVE (NEGATIVE); UROBILINOGEN,URINE 0.2 (NORMAL) E.U./dL (NORMAL)
[2018-01-06 08:29] LABS: CLARITY,URINE CLEAR (CLEAR)
[2018-01-06] MEDS ORDERED: KETOROLAC 60 MG/2 ML VIAL IM STA (08:36)
--- NOTE | 2018-01-06 11:23 | MRI Report ---
Reason: back pain RLE pain numb, incontinent Procedure Date: 01/06/2018 Accession Number: [id number] / [id number] Procedure: MRI - Lumbar Spine W/O CPT Code: FULL RESULT: EXAM: MRI LUMBAR SPINE WITHOUT CONTRAST EXAM DATE: 01/06/2018 11:00 AM. CLINICAL HISTORY: Back pain RLE pain numb, incontinent. COMPARISON: 11/18/2016 lumbar and thoracic spine radiographs. TECHNIQUE: Multiplanar, multisequence T1-weighted and fluid-sensitive sequences of the lumbar spine from T12 to S1 without contrast. Other: None. FINDINGS: Spinal Canal: The conus terminates at L1. The conus medullaris and cauda equina are unremarkable. Alignment: No scoliosis or spondylolisthesis. Bone Marrow: There is transitional lumbosacral anatomy, with sacralization of the L5 vertebral body. No gross fractures or bone lesions. No bone marrow replacement. Modic type I endplate degenerative changes at L4-L5. Disk Levels/Facets: T12-L1: Unremarkable. L1-L2: Unremarkable. L2-L3: Unremarkable. L3-L4: Unremarkable. L4-L5: A large right central disk extrusion measures 0.9 x 1.5 cm in cross section and 1.5 cm in craniocaudal dimension, compressing the traversing right L5 nerve root within the lateral recess. There is also mild facet arthropathy with mild bilateral foraminal stenosis. Intervertebral disk height loss with disk desiccation is mild. L5-S1: Unremarkable. Musculature: Normal. No edema or fatty atrophy. Other: The partially visualized retroperitoneum is unremarkable. IMPRESSION: 1. Transitional lumbosacral anatomy, with sacralization of the L5 vertebral body and 4 nonrib-bearing lumbar type vertebral bodies. The lowest lumbar type vertebral body is labeled L4. 2. Large right central disk extrusion at L4-L5 compresses the traversing right L5 nerve root within the lateral recess. Comment: The following findings are so common in adults without low back pain that while we report their presence, they must be interpreted with caution and in the context of the clinical situation. (Reference Ramirok et al, Spine 2001) Prevalence of findings in patients without low back pain: Disk degeneration (any evidence): 92% Disk desiccation/T2 signal loss: 83% Disk height loss: 56% Disk bulge: 64% Disk protrusion: 32% Annular tear/high intensity zone: 38% [facility]
[2018-01-06 13:56] VITALS: BP 147/87
== END 2018-01-06 13:55 | disposition home or self-care (01) ==
LOC: ED 06:26
DX: M54.31 Sciatica, right side (principal); M51.26 Other intervertebral disc displacement, lumbar region
CPT/HCPCS: 36415; 72148; 80048; 81003; 84703; 85025; 85651; 86140; 96372; 99283; A9270; 81001; 87086

== ENCOUNTER 2018-03-16 12:13 | Emergency (ER) | payer MEDICAID ==
[2018-03-16] MEDS ORDERED: RABIES IMMUNE GLOBULIN 300 UNITS/2 ML IM STA (13:01)
[2018-03-16] MEDS ORDERED: RABIES VACCINE 2.5 UNIT SYRINGE IM ONE (13:01)
--- NOTE | 2018-03-16 13:44 | XRAY Report ---
Reason: hand injury Procedure Date: 03/16/2018 Accession Number: [id number] / [id number] Procedure: XR - Hand 3 View RT CPT Code: FULL RESULT: EXAM: RIGHT HAND RADIOGRAPHY EXAM DATE: 03/16/2018 01:24 PM. CLINICAL HISTORY: Dog bite to fifth digit. COMPARISON: None. TECHNIQUE: 3 views. FINDINGS: Bones: No fracture. No bony destruction. Joints: Normal. No subluxations. Soft Tissues: No soft tissue foreign body. IMPRESSION: No fracture or foreign body. [facility]
[2018-03-16] MEDS ORDERED: BUFFERED LIDOCAINE 10 ML SYRINGE SUBQ STA (14:09)
[2018-03-16] MEDS ORDERED: AMOX/CLAV 875 MG/125 MG TABLET PO STA (14:09)
--- NOTE | 2018-03-16 14:25 | ED Physician Documentation ---
PD HPI UPPER EXT INJURY - Stated complaint Stated Complaint: DOG BITE R HAND - Chief complaint Chief Complaint: Laceration - History obtained from History obtained from: Patient - History of Present Illness Location: Right, Finger (Right little finger) Type of injury: Other (Dog bite to the right hand) Where injury occurred: [place] Timing - onset: Today Timing - details: Abrupt onset Severity Comments: moderate Improved by: Nothing Worsened by: Moving Associated symptoms: No: Weakness, Numbness, Tingling Contributing factors: No: Anticoagulated Similar symptoms before: No diagnosis Recently seen: Not recently seen Review of Systems Constitutional: denies: Fever, Fatigue Eyes: denies: Discharge Ears: denies: Ear pain Cardiac: denies: Chest pain / pressure Skin: reports: Laceration (s) Musculoskeletal: reports: Extremity pain PD PAST MEDICAL HISTORY - Past Medical History Past Medical History: Yes Cardiovascular: None Respiratory: Asthma Neuro: None Endocrine/Autoimmune: None GI: GERD : None HEENT: None Psych: Depression, Anxiety Musculoskeletal: Other Derm: Psoriasis - Past Surgical History Past Surgical History: Yes HEENT: Tonsil/Adenoidectomy - Present Medications Home Medications: Ambulatory Orders Medication Instructions Recorded Confirmed Gabapentin 100 mg PO TID #60 capsule 12/31/17 metFORMIN [Glucophage] 500 mg PO TID 12/31/17 12/31/17 Amox/Clav 875/125 [Augmentin] 1 each PO Q12H #20 tablet 03/16/18 DULoxetine [Cymbalta] 20 mg PO DAILY 03/16/18 03/16/18 - Allergies Allergies/Adverse Reactions: Allergies Allergy/AdvReac Type Severity Reaction Status Date / Time No Known Drug Allergies Allergy Verified 03/16/18 12:19 - Social History Does the pt smoke?: No Smoking Status: Never smoker Does the pt drink ETOH?: Yes Does the pt have substance abuse?: Yes - Immunizations Immunizations are current?: Yes - POLST Patient has POLST: No POLST Status: Full Code PD ED PE NORMAL - General General: Alert and oriented X 3, No acute distress - HEENT HEENT: Atraumatic, PERRL, EOMI, Ears normal - Respiratory Respiratory: No respiratory distress - Derm Derm: Other (1.5 cm laceration on the volar side of the right little finger, multiple small puncture wounds) - Extremities Extremities: No deformity. No: No tenderness to palpate (The patient has tenderness of the right little finger, there is normal active range of motion, no evidence of a tendon laceration.) - Neuro Neuro: Alert and oriented X 3 - Psych Psych: Normal affect Results - Vitals Vitals: Vital Signs - 24 hr 03/16/18 12:16 Temperature 36 C L Heart Rate 88 Respiratory 18 Rate Blood Pressure 134/76 H O2 Saturation 99 Oxygen O2 Source Room air - Rads (name of study) XR hand Radiology: Final report received, See rad report Procedures - Laceration (location) Finger right Length in cm: 1.5 Wound type: Linear Neurovascular status: Sensory intact, Motor intact, Vascular intact Tendon involvement: Tendon intact, Tendon Injury Anesthesia: Lidocaine 1% Wound Preparation: Chlorhexadine, Irrigated copiously NS, Wound explored, To the base. No: FB identified, FB removed Skin layer closure: Nylon, Interrupted, Size #-0 - enter number (4.0), Sutures - enter # (2) Other: Patient tolerated well, No complications, Neurovascular intact, Dressing applied, Tetanus UTD Complexity: Simple PD MEDICAL DECISION MAKING - ED course ED course: Given the fact that the patient was bit by a stray dog The patient is unaware of the dogs immunization status the patient was given the rabies immunoglobulin and the vaccine. The patient will need the follow-up 7-day and 21-day rabies vaccine booster. The wound was copiously irrigated and loosely approximated. The patient currently appears appropriate for discharge and ongoing outpatient management. She will be discharged home with Augmentin since this was a dog bite. I discussed with the patient warning signs for infection and recommended having her sutures removed in 7-10 days. The patient will otherwise return to the emergency department for any worsening or any concerns Departure - Departure Disposition: 01 Home, Self Care Clinical Impression: Laceration of hand Qualifiers: Encounter type: initial encounter Foreign body presence: without foreign body Laterality: right Qualified Code(s): S61.411A - Laceration without foreign body of right hand, initial encounter Dog bite Qualifiers: Encounter type: initial encounter Qualified Code(s): W54.0XXA - Bitten by dog, initial encounter Condition: Good Instructions: ED Bite Animal General, ED Laceration All, Rabies Immune Globulin human RIG solution for injection, Rabies, Rabies Vaccine suspension for injection Follow-Up: Elizabeth Main ARNP [Primary Care Provider] - Within 1 week [facility] [Provider Group] Prescriptions: Amox/Clav 875/125 [Augmentin] 1 each PO Q12H #20 tablet Comments: Please follow-up with either your primary care, the [facility] Or this department in 7 days and 21 days for the rabies vaccine series Please have your sutures removed in 7-10 days Please return to the emergency department for worsening symptoms or any concerns
[2018-03-16 15:11] VITALS: BP 111/74
== END 2018-03-16 14:45 | disposition home or self-care (01) ==
LOC: ED 12:13
DX: S61.216A Laceration without foreign body of right little finger without damage to nail, initial encounter (principal); W54.0XXA Bitten by dog, initial encounter; Y92.830 Public park as the place of occurrence of the external cause
CPT/HCPCS: 99283

== ENCOUNTER 2018-03-16 15:47 | Emergency (ER) | payer MEDICAID ==
[2018-03-16] MEDS ORDERED: BUFFERED LIDOCAINE 10 ML SYRINGE SUBQ STA (16:02)
[2018-03-16] MEDS ORDERED: RABIES IMMUNE GLOBULIN 300 UNITS/2 ML IM STA (16:03)
[2018-03-16] MEDS ORDERED: NAPROXEN 250 MG TABLET PO STA (17:16)
[2018-03-16 18:05] VITALS: BP 102/69
--- NOTE | 2018-03-16 18:05 | ED Physician Documentation ---
PD HPI UPPER EXT INJURY - Stated complaint Stated Complaint: FINGER LAC - Chief complaint Chief Complaint: Wound - History obtained from History obtained from: Patient - History of Present Illness Location: Right, Finger Type of injury: Laceration - Additonal information Additional information: The patient was seen earlier for a dog bite to her right little finger, the patient had 2 sutures placed and returns secondary to ongoing bleeding. No other acute injuries. Symptoms are described as moderate. Review of Systems Constitutional: denies: Fever Eyes: denies: Discharge Ears: denies: Ear pain Skin: reports: Laceration (s). denies: Rash Musculoskeletal: reports: Extremity pain PD PAST MEDICAL HISTORY - Past Medical History Cardiovascular: None Respiratory: Asthma Neuro: None Endocrine/Autoimmune: None GI: GERD : None HEENT: None Psych: Depression, Anxiety Musculoskeletal: Other Derm: Psoriasis - Past Surgical History Past Surgical History: Yes HEENT: Tonsil/Adenoidectomy - Present Medications Home Medications: Ambulatory Orders Medication Instructions Recorded Confirmed Gabapentin 100 mg PO TID #60 capsule 12/31/17 metFORMIN [Glucophage] 500 mg PO TID 12/31/17 12/31/17 Amox/Clav 875/125 [Augmentin] 1 each PO Q12H #20 tablet 03/16/18 DULoxetine [Cymbalta] 20 mg PO DAILY 03/16/18 03/16/18 - Allergies Allergies/Adverse Reactions: Allergies Allergy/AdvReac Type Severity Reaction Status Date / Time No Known Drug Allergies Allergy Verified 03/16/18 12:19 - Social History Does the pt smoke?: No Smoking Status: Never smoker Does the pt drink ETOH?: Yes Does the pt have substance abuse?: Yes - Immunizations Immunizations are current?: Yes - POLST Patient has POLST: No POLST Status: Full Code PD ED PE NORMAL - General General: Alert and oriented X 3, No acute distress - HEENT HEENT: Atraumatic, PERRL, EOMI, Ears normal - Derm Derm: Other (There is a well approximated 1.5 cm laceration on the volar little finger on the right hand, there is a brisk bleed. No new area of injury) - Neuro Neuro: Alert and oriented X 3, Normal speech - Psych Psych: Normal affect Results - Vitals Vitals: Vital Signs - 24 hr 03/16/18 03/16/18 15:54 18:04 Temperature 36.7 C 36.6 C Heart Rate 78 72 Respiratory 14 16 Rate Blood Pressure 121/68 102/69 O2 Saturation 100 97 Oxygen O2 Source Room air Procedures - General procedure General procedure: A digital block was done with 1% lidocaine with sodium bicarbonate, Surgicel was applied to the wound and a pressure dressing was applied over top of that PD MEDICAL DECISION MAKING - ED course ED course: The patient was observed in the emergency department for 2 hours after the dressing was placed. Presently the patient appears appropriate for discharge. I advised leaving the dressing on until tomorrow. I discussed warning signs and recommended returning for any worsening or any concerns. Initially, the patient got a small dose of the immunoglobulin and the rest of the dose was given. Also the patient was instructed to get her rabies vaccination course at 3 days, 7 days in 14 days. The patient understands and agrees Departure - Departure Disposition: 01 Home, Self Care Clinical Impression: Finger laceration Qualifiers: Encounter type: initial encounter Finger: little finger Damage to nail status: without damage Foreign body presence: without foreign body Laterality: right Qualified Code(s): S61.216A - Laceration without foreign body of right little finger without damage to nail, initial encounter Condition: Good Instructions: Wound Care, Incision Care Follow-Up: Elizabeth Main ARNP [Primary Care Provider] - Within 3 Days (Please follow-up with your primary care physician for ongoing rabies vaccination. He will require repeat vaccinations at day 3, day 7 and day 14. If they are unable to accommodate you please return back to the emergency department for your vaccination series) Comments: Please return for any worsening or any concerns
== END 2018-03-16 18:09 | disposition home or self-care (01) ==
LOC: ED 15:47
DX: S61.216A Laceration without foreign body of right little finger without damage to nail, initial encounter (principal); W54.0XXA Bitten by dog, initial encounter; Y92.830 Public park as the place of occurrence of the external cause; Z29.14 Encounter for prophylactic rabies immune globulin
CPT/HCPCS: 12001; 73130; 90376; 90471; 90675; 96372; 99283; A9270

== ENCOUNTER 2018-03-18 12:03 | Emergency (ER) | payer MEDICAID ==
[2018-03-18 12:16] VITALS: BP 130/107
[2018-03-18] MEDS ORDERED: AMPICILLIN/SULBACTAM 3 GM in SODIUM CHLORIDE 0.9% MINIBAG 100 ML IV STA (13:16)
--- NOTE | 2018-03-18 13:27 | ED Physician Documentation ---
PD HPI UPPER EXT INJURY - Stated complaint Stated Complaint: RT PINKY PX/DOG - Chief complaint Chief Complaint: Ext Problem - History obtained from History obtained from: Patient - Additonal information Additional information: 23-year-old female presents to the emergency department for evaluation of a possible right little finger infection. The patient sustained a dog bite on March 16, 2018, the patient was treated with the rabies immunoglobulin and rabies vaccine, The wound was aggressively irrigated and the larger laceration had 2 loose sutures placed to help approximate the wound. The patient was given a dose of Augmentin and a prescription for Augmentin. The patient did not pick up attendant the prescription of Augmentin and has missed the last 3 doses and today returns to the emergency department for evaluation because now her little finger is red and she has had drainage from the wound. The patient can actively flex the wound without any difficulty. No new trauma or injury. No fevers or chills. Symptoms are described as moderate Review of Systems Constitutional: denies: Fever, Chills, Fatigue Eyes: denies: Discharge Ears: denies: Ear pain Nose: denies: Rhinorrhea / runny nose Cardiac: denies: Chest pain / pressure Respiratory: denies: Cough GI: denies: Abdominal Pain : denies: Dysuria Skin: reports: Laceration (s) Musculoskeletal: reports: Extremity pain PD PAST MEDICAL HISTORY - Past Medical History Cardiovascular: None Respiratory: Asthma Neuro: None Endocrine/Autoimmune: None GI: GERD : None HEENT: None Psych: Depression, Anxiety Musculoskeletal: Other Derm: Psoriasis - Past Surgical History Past Surgical History: Yes HEENT: Tonsil/Adenoidectomy - Present Medications Home Medications: Ambulatory Orders Medication Instructions Recorded Confirmed Gabapentin 100 mg PO TID #60 capsule 12/31/17 metFORMIN [Glucophage] 500 mg PO TID 12/31/17 12/31/17 Amox/Clav 875/125 [Augmentin] 1 each PO Q12H #20 tablet 03/16/18 DULoxetine [Cymbalta] 20 mg PO DAILY 03/16/18 03/16/18 Amox/Clav 875/125 [Augmentin] 1 each PO Q12H #20 tablet 03/18/18 - Allergies Allergies/Adverse Reactions: Allergies Allergy/AdvReac Type Severity Reaction Status Date / Time No Known Drug Allergies Allergy Verified 03/18/18 12:16 - Social History Does the pt smoke?: No Smoking Status: Never smoker Does the pt drink ETOH?: Yes Does the pt have substance abuse?: Yes - Immunizations Immunizations are current?: Yes - POLST Patient has POLST: No POLST Status: Full Code PD ED PE NORMAL - General General: Alert and oriented X 3, No acute distress - HEENT HEENT: Atraumatic, PERRL, EOMI, Ears normal - Neck Neck: Supple, no meningeal sign - Derm Derm: Other (The wound is approximated and there is a serosanguineous discharge from the wound. There is surrounding erythema which tracks on the volar and dorsal side into the MCP. The patient has full active range of motion of the right hand and right little finger. The patient has no significant tenderness along the flexor tendon sheath. The patient can tolerate passive flexion. The digit is swollen but very minimally swollen and has not a sausage digit) - Extremities Extremities: No deformity - Neuro Neuro: Alert and oriented X 3, Normal speech Results - Vitals Vitals: Vital Signs - 24 hr 03/18/18 12:13 Temperature 36.0 C L Heart Rate 76 Respiratory 16 Rate Blood Pressure 130/107 H O2 Saturation 100 Oxygen O2 Source Room air - Labs Labs: Laboratory Tests 03/18/18 03/18/18 03/18/18 13:40 13:40 13:40 WBC 9.1 RBC 4.57 Hgb 14.0 Hct 40.6 MCV 88.8 MCH 30.7 MCHC 34.6 RDW 12.8 Plt Count 322 MPV 8.7 Neut # (Auto) 6.4 Lymph # (Auto) 1.8 [place] # (Auto) 0.6 Eos # (Auto) 0.2 Baso # (Auto) 0.1 Absolute Nucleated RBC 0.00 Nucleated RBC % 0.0 ESR 7 Sodium 139 Potassium 4.1 Chloride 109 Carbon Dioxide 21 Anion Gap 9.0 BUN 13 Creatinine 0.5 Estimated GFR (MDRD) 152 Glucose 106 H Calcium 9.0 Total Bilirubin 0.5 AST 22 ALT 18 Alkaline Phosphatase 51 C-Reactive Protein Total Protein 7.6 Albumin 4.2 Globulin 3.4 Albumin/Globulin Ratio 1.2 Lipase 34 03/18/18 13:40 WBC RBC Hgb Hct MCV MCH MCHC RDW Plt Count MPV Neut # (Auto) Lymph # (Auto) [place] # (Auto) Eos # (Auto) Baso # (Auto) Absolute Nucleated RBC Nucleated RBC % ESR Sodium Potassium Chloride Carbon Dioxide Anion Gap BUN Creatinine Estimated GFR (MDRD) Glucose Calcium Total Bilirubin AST ALT Alkaline Phosphatase C-Reactive Protein 1.9 H Total Protein Albumin Globulin Albumin/Globulin Ratio Lipase PD MEDICAL DECISION MAKING - ED course Complexity details: re-evaluated patient ED course: The case was discussed with the on-call orthopedic surgeon Dr. Ballard, The patient's recent injury and current presentation was discussed. Currently, since this does not sound like an acute Flexor tenosynovitis he does not recommend emergent operative washout. Since this sounds more like an infected wound he recommends ongoing antibiotic therapy and agrees to follow the patient up tomorrow in clinic for reevaluation. On reevaluation the patient is resting comfortably, the 2 sutures were removed to allow the wound to continuously drain. The patient was given a dose of IV antibiotics in the emergency department. I again gave her a prescription for Augmentin and urged her to fill the prescription. I explained to her the plan for follow-up with orthopedics tomorrow, the patient understands and will follow up tomorrow as scheduled. The patient will also get her rabies 3 days shot tomorrow. I discussed with the patient warning signs and recommended returning for any worsening or any concerns Departure - Departure Disposition: 01 Home, Self Care Clinical Impression: Infected bite wound Condition: Good Instructions: ED Bite Dog, ED Laceration Repair Infec Follow-Up: Milena Ballard MD [Provider Admit Priv/Credential] - Tomorrow (Please follow- up tomorrow with orthopedics for wound recheck. Please call the office first thing in the morning to schedule an appointment. Let the office know that Dr. Ballard Wanted to see you in clinic tomorrow) Prescriptions: Amox/Clav 875/125 [Augmentin] 1 each PO Q12H #20 tablet Comments: Please return to the emergency department immediately for worsening symptoms or any concerns Discharge Date/Time: 03/18/18 15:14
[2018-03-18 13:51] LABS: BASOPHILS # (AUTO) 0.1 10^3/uL (0.0-0.1); BASOPHILS % (AUTO) 0.6 %; EOSINOPHILS # (AUTO) 0.2 10^3/uL (0.0-0.7); EOSINOPHILS % (AUTO) 2.5 %; LYMPHOCYTES # (AUTO) 1.8 10^3/uL (1.5-3.5); LYMPHOCYTES % (AUTO) 19.7 %; MEAN CORPUSCULAR HEMOGLOBIN 30.7 pg (27.0-31.0); MEAN CORPUSCULAR HGB CONC 34.6 g/dL (32.0-36.0); MEAN CORPUSCULAR VOLUME 88.8 fL (81.0-99.0); MEAN PLATELET VOLUME 8.7 fL (7.9-10.8); MONOCYTES # (AUTO) 0.6 10^3/uL (0.0-1.0); NEUTROPHILS # (AUTO) 6.4 10^3/uL (1.5-6.6); NEUTROPHILS % (AUTO) 70.2 %; PLT - PLATELET COUNT 322 10^3/uL (130-450); RED BLOOD COUNT 4.57 10^6/uL (4.20-5.40); RED CELL DISTRIBUTION WIDTH 12.8 % (12.0-15.0); WHITE BLOOD COUNT 9.1 x10^3/uL (4.8-10.8)
[2018-03-18 14:05] LABS: ALBUMIN 4.2 g/dL (3.2-5.5); ALBUMIN/GLOBULIN RATIO 1.2 (1.0-2.2); BILIRUBIN,TOTAL 0.5 mg/dL (0.2-1.0); CREATININE 0.5 mg/dL (0.4-1.0); TOTAL PROTEIN 7.6 g/dL (6.7-8.2)
[2018-03-18] MEDS ORDERED: KETOROLAC 15 MG/ML VIAL IVP STA (14:19)
== END 2018-03-18 15:14 | disposition home or self-care (01) ==
LOC: ED 12:03
DX: S61.256A Open bite of right little finger without damage to nail, initial encounter (principal); L08.9 Local infection of the skin and subcutaneous tissue, unspecified; W54.0XXA Bitten by dog, initial encounter
CPT/HCPCS: 36415; 80053; 83690; 85025; 85651; 86140; 96365; 96375; 99283

== ENCOUNTER 2018-07-03 08:00 | Outpatient (CLI) | payer MEDICAID, OTHER ==
[2018-07-03 19:17] LABS: CHOLESTEROL 145 mg/dL; HDL CHOLESTEROL 49 mg/dL
[2018-07-03 19:36] LABS: HB2 TOTAL 15.1 g/dL; HEMOGLOBIN A1C 0.51 g/dL; HEMOGLOBIN A1C % 5.2 % (4.6-6.2); LDL CHOLESTEROL,DIRECT 90 mg/dL; LDLD/HDL RATIO 1.8 (<4.4)
== END 2018-07-03 23:59 | disposition home or self-care (01) ==
LOC: LAB.N 08:00
PROVIDERS: ATTEND Nurse Practitioner Gerontology
DX: E66.9 Obesity, unspecified (principal); R73.9 Hyperglycemia, unspecified
CPT/HCPCS: 36415; 80061; 83036; 83721

== ENCOUNTER 2018-11-22 02:46 | Emergency (ER) | payer BC ==
[2018-11-22] MEDS ORDERED: SODIUM CHLORIDE 0.9% 1,000 ML IV ONE (03:27)
--- NOTE | 2018-11-22 03:28 | ED Physician Documentation ---
PD HPI FEMALE - Stated complaint Stated Complaint: ADB PX - Chief complaint Chief Complaint: Abd Pain - History obtained from History obtained from: Patient - History of Present Illness Timing - onset: Today (Just prior to arrival) Timing - details: Abrupt onset Associated symptoms: Abdominal pain. No: Fever, Chest/shoulder pain, Vaginal bleeding, Dysuria, Urinary frequency Contributing factors: OB-PHYSICAL AERODYNAMICIST History: G (1), P (0) Similar symptoms before: Has not had sx before Recently seen: Not recently seen - Additional information Additional information: Is a 23-year-old who is 16 weeks 3 days by ultrasound presents with complaints of a sharp pain under her right rib cage that is radiating to the mid abdomen. She had gotten up out of bed to go to work and was getting ready when the pain started. It has been "kind of" constant she does not denies nausea vomiting or diarrhea. No fever. She is had no vaginal bleeding and she has not yet started feeling the baby move. Denies dysuria or dizziness. Patient has been coughing bringing up a little bit of "normal" phlegm. Review of Systems Constitutional: denies: Fever Throat: denies: Sore throat Cardiac: denies: Chest pain / pressure Respiratory: reports: Cough GI: reports: Abdominal Pain. denies: Nausea, Vomiting, Diarrhea : reports: Now EGA (16 weeks 3 days by U/S). denies: Dysuria Skin: denies: Rash Neurologic: denies: Syncope PD PAST MEDICAL HISTORY - Past Medical History Past Medical History: Yes Cardiovascular: None Respiratory: Asthma Neuro: None Endocrine/Autoimmune: None GI: GERD PHYSICAL AERODYNAMICIST: None : None HEENT: None Psych: Depression, Anxiety Musculoskeletal: Other Derm: Psoriasis - Past Surgical History Past Surgical History: Yes HEENT: Tonsil/Adenoidectomy - Present Medications Home Medications: Ambulatory Orders Medication Instructions Recorded Confirmed Gabapentin 100 mg PO TID #60 capsule 12/31/17 metFORMIN [Glucophage] 500 mg PO TID 12/31/17 12/31/17 Amox/Clav 875/125 [Augmentin] 1 each PO Q12H #20 tablet 03/16/18 DULoxetine [Cymbalta] 20 mg PO DAILY 03/16/18 03/16/18 Amox/Clav 875/125 [Augmentin] 1 each PO Q12H #20 tablet 03/18/18 - Allergies Allergies/Adverse Reactions: Allergies Allergy/AdvReac Type Severity Reaction Status Date / Time No Known Drug Allergies Allergy Verified 11/22/18 02:49 - Social History Does the pt smoke?: No Smoking Status: Never smoker Does the pt drink ETOH?: Yes Does the pt have substance abuse?: Yes - Immunizations Immunizations are current?: Yes - POLST Patient has POLST: No POLST Status: Full Code PD ED PE NORMAL - Vitals Vital signs reviewed: Yes - General General: Alert and oriented X 3, No acute distress, Well developed/nourished - HEENT HEENT: Atraumatic, PERRL, Moist mucous membranes - Neck Neck: No adenopathy, Thyroid normal - Cardiac Cardiac: RRR, No murmur - Respiratory Respiratory: No respiratory distress, Clear bilaterally - Abdomen Abdomen: Normal bowel sounds, Soft, Other (Pain in the right upper quadrant as well as the left lower quadrant. The uterus is palpable just below the umbilicus. 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, Other (No gross neurological deficits.) - Psych Psych: Normal mood, Normal affect Results - Vitals Vitals: Vital Signs - 24 hr 11/22/18 11/22/18 02:47 04:29 Temperature 36.7 C Heart Rate 77 67 Respiratory 17 16 Rate Blood Pressure 120/42 L 112/61 O2 Saturation 100 100 Oxygen O2 Source Room air - Labs Labs: Laboratory Tests 11/22/18 11/22/18 11/22/18 02:20 03:35 03:35 WBC 7.0 RBC 3.94 L Hgb 11.7 L Hct 35.3 L MCV 89.6 MCH 29.7 MCHC 33.1 RDW 12.9 Plt Count 215 MPV 10.6 Neut # (Auto) 4.7 Lymph # (Auto) 1.4 L [place] # (Auto) 0.7 Eos # (Auto) 0.3 Baso # (Auto) 0.0 Absolute Nucleated RBC 0.00 Nucleated RBC % 0.0 Sodium 136 Potassium 4.2 Chloride 106 Carbon Dioxide 23 Anion Gap 7.0 BUN 8 Creatinine 0.3 L Estimated GFR (MDRD) 273 Glucose 93 Calcium 8.3 L Total Bilirubin 0.6 AST 14 ALT 16 Alkaline Phosphatase 29 L Total Protein 6.3 L Albumin 3.5 Globulin 2.8 Albumin/Globulin Ratio 1.3 Lipase 29 Urine Color YELLOW Urine Clarity CLEAR Urine pH 7.5 Ur Specific [place] 1.015 Urine Protein NEGATIVE Urine Glucose (UA) NEGATIVE Urine Ketones NEGATIVE Urine Occult Blood NEGATIVE Urine Nitrite NEGATIVE Urine Bilirubin NEGATIVE Urine Urobilinogen 0.2 (NORMAL) Ur Leukocyte Esterase NEGATIVE Ur Microscopic Review NOT INDICATED Urine Culture Comments NOT INDICATED PD MEDICAL DECISION MAKING - ED course Complexity details: reviewed results, re-evaluated patient, d/w patient, d/w family, d/w [facility] consultant ED course: Patient had an IV and a liter of fluids. On reevaluation she said that the pain was gone. Her abdomen was now completely nontender with palpation. Liver enzymes are normal CBC is normal and her urinalysis is negative. I did discuss with the OB on-call for [facility], Dr Alvarez, and he recommended follow- up in the office at her routine follow-up date. Departure - Departure Disposition: 01 Home, Self Care Clinical Impression: Abdominal pain Qualifiers: Abdominal location: right upper quadrant Qualified Code(s): R10.11 - Right upper quadrant pain Qualifiers: Weeks of gestation: 16 weeks Qualified Code(s): Z3A.16 - 16 weeks gestation of Condition: Good Instructions: ED Abdominal Pain Unkn Cause Follow-Up: DARYL Al [Other] Comments: Keep your regularly scheduled appointment with the OB. If the pain returns especially if it is associated with any vomiting or vaginal bleeding you should be immediately reevaluated. Follow-up immediately if fever.
[2018-11-22 03:36] LABS: BILIRUBIN,URINE NEGATIVE (NEGATIVE); GLUCOSE, URINE (UA) NEGATIVE (NEGATIVE); KETONES,URINE (UA) NEGATIVE (NEGATIVE); LEUKOCYTE ESTERASE, URINE NEGATIVE (NEGATIVE); NITRITE,URINE NEGATIVE (NEGATIVE); OCCULT BLOOD,URINE NEGATIVE (NEGATIVE); PH,URINE 7.5 PH (5.0-7.5); PROTEIN,URINE NEGATIVE (NEGATIVE); UROBILINOGEN,URINE 0.2 (NORMAL) E.U./dL (NORMAL)
[2018-11-22 03:37] LABS: CLARITY,URINE CLEAR (CLEAR)
[2018-11-22 03:51] LABS: BASOPHILS % (AUTO) 0.4 %; EOSINOPHILS # (AUTO) 0.3 10^3/uL (0.0-0.7); HGB - HEMOGLOBIN 11.7 g/dL (12.0-16.0); LYMPHOCYTES # (AUTO) 1.4 10^3/uL (1.5-3.5); LYMPHOCYTES % (AUTO) 19.9 %; MEAN CORPUSCULAR HEMOGLOBIN 29.7 pg (27.0-31.0); MEAN CORPUSCULAR HGB CONC 33.1 g/dL (32.0-36.0); MEAN CORPUSCULAR VOLUME 89.6 fL (81.0-99.0); MEAN PLATELET VOLUME 10.6 fL (7.9-10.8); MONOCYTES # (AUTO) 0.7 10^3/uL (0.0-1.0); MONOCYTES % (AUTO) 9.2 %; NEUTROPHILS # (AUTO) 4.7 10^3/uL (1.5-6.6); NEUTROPHILS % (AUTO) 66.2 %; PLT - PLATELET COUNT 215 10^3/uL (130-450); RED BLOOD COUNT 3.94 10^6/uL (4.20-5.40); RED CELL DISTRIBUTION WIDTH 12.9 % (12.0-15.0)
[2018-11-22 04:04] LABS: ALBUMIN 3.5 g/dL (3.2-5.5); ALBUMIN/GLOBULIN RATIO 1.3 (1.0-2.2); BILIRUBIN,TOTAL 0.6 mg/dL (0.2-1.0); CALCIUM 8.3 mg/dL (8.5-10.3); CREATININE 0.3 mg/dL (0.4-1.0); TOTAL PROTEIN 6.3 g/dL (6.7-8.2)
[2018-11-22 04:30] VITALS: BP 112/61
== END 2018-11-22 05:31 | disposition home or self-care (01) ==
LOC: ED 02:46
DX: O99.89 Other specified diseases and conditions complicating pregnancy, childbirth and the puerperium (principal); R10.11 Right upper quadrant pain; R10.32 Left lower quadrant pain; Z3A.16 16 weeks gestation of pregnancy
CPT/HCPCS: 36415; 80053; 81001; 81003; 83690; 85025; 87086; 96360; 99284

== ENCOUNTER 2019-02-12 06:14 | Outpatient (CLI) | payer BC ==
[2019-02-12 06:51] VITALS: BP 124/69
--- NOTE | 2019-02-12 07:51 | HISTORY & PHYSICAL EXAMINATION ---
Admit History - Visit Reason Visit Reason: Other (24yo G1 at 28 weeks presents with multiple complaints including intermittent sharp groin pain, dizziness upon standing in the morning, continued vomiting several times a week since the start of . Pt reports the sharp groin pain when she does certain movements or coughs. Denies contractions, bleeding, loss of fluid. Reports normal activity. Discussed hydration and getting up slowly especially out of bed in the morning. She smokes marijuana daily. No F/C. No dysuria or diarrhea.) - : 1 Parity: 0 Care: positive: Other (Uday; planning to change care to here) Complications This : positive: Other (Anemia by report, morbid obesity, depression/anxiety, hyperemesis) Smoking Status: Current every day smoker (Marijuana) - Mother's Labs Mother's Blood Type: positive: Unknown Mother's RH: positive: Unknown Rubella Status: positive: Unknown - Other Maternal History Other Maternal History: H/O sciatica on right, depression Past surg/ Tonsillectomy, inperforate hymen Meds/Allgy - Home Medications Home Medications: Ambulatory Orders Medication Instructions Recorded Confirmed Ferrous Gluconate [Iron] 02/12/19 Metoclopramide [Reglan] 02/12/19 Pnv No.95/Ferrous Fum/Folic AC 02/12/19 [ Caplet] buPROPion [Wellbutrin Xl] 02/12/19 - Allergies Allergies/Adverse Reactions: Allergies Allergy/AdvReac Type Severity Reaction Status Date / Time No Known Drug Allergies Allergy Verified 11/22/18 02:49 Review of Systems - Constitutional Constitutional: reports: Fatigue - Cardiovascular Cariovascular: reports: Lightheadedness. denies: Palpitations, Chest pain - Respiratory Respiratory: denies: Cough, Wheezing, SOB at rest, SOB with exertion - Gastrointestinal Gastrointestinal: reports: Nausea, Vomiting, Other (Round ligament pain as noted). denies: Abdominal pain - Genitourinary Genitourinary: denies: Dysuria - Musculoskeletal Musculoskeletal: reports: Back pain (C/W her usual sciatica) - Neurological Neurological: denies: Headache - All Other Systems All Other Systems: reports: Reviewed and negative Physical - Abdominal Exam Vital Signs: Temp Pulse Resp BP Pulse Ox 97.5 F L 83 18 124/69 99 02/12/19 07:34 02/12/19 07:34 02/12/19 07:34 02/12/19 07:34 02/12/19 07:34 Contraction Frequency (min/apart): No contractions Uterine Resting Tone: positive: Soft (Completely non-tender) - Monitoring Strip Review: positive: Category I - Vaginal Exam Membranes: positive: Membranes intact (Cervical exam deferred) Plan for Labor - Plan For Labor Plan for Labor: 24yo G1 at 28 weeks by report with round ligament pain. Discussed strategies for relief and reassured. No evidence of cardiac/neuro issues with regard to dizziness; counseled to increase fluids, get up more slowly, etc. 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 Also suggested strategies for dealing with the nausea/vomiting. Counseled to proceed with change of venue for care soon so records can all be in one place. F/U scheduled with current provider this week. Exam - Exam Vital Signs: Vital Signs (72 hours) 02/12/19 02/12/19 06:28 07:34 Temperature 98.1 F 97.5 F L Heart Rate [ 68 83 Monitoring electrodes] Respiratory 16 18 Rate Blood Pressure 124/69 124/69 [Left Brachial artery] O2 Saturation 98 99 General: Alert, Oriented x3, Cooperative HEENT: Atraumatic Lungs: Clear to auscultation, Normal air movement Cardiovascular: Regular rate, No murmurs Abdomen: Normal bowel sounds, No tenderness (Gravid, obese) Extremities: No edema Neurological: Normal gait Psych/Mental Status: Mental status NL
== END 2019-02-12 07:53 | disposition home or self-care (01) ==
LOC: WFO 06:14 → FBP 06:19 → WFO 07:53
PROVIDERS: ATTEND Obstetrics & Gynecology
DX: O99.89 Other specified diseases and conditions complicating pregnancy, childbirth and the puerperium (principal); R10.30 Lower abdominal pain, unspecified; O99.323 Drug use complicating pregnancy, third trimester; F12.90 Cannabis use, unspecified, uncomplicated; O99.343 Other mental disorders complicating pregnancy, third trimester; F41.9 Anxiety disorder, unspecified; F32.9 Major depressive disorder, single episode, unspecified; O21.2 Late vomiting of pregnancy; Z3A.38 38 weeks gestation of pregnancy

== ENCOUNTER 2019-12-10 10:49 | Emergency (ER) | payer BC, MEDICAID ==
[2019-12-10 11:19] VITALS: BP 125/60
--- NOTE | 2019-12-10 12:15 | ED Physician Documentation ---
PD HPI CHEST PAIN - Stated complaint Stated Complaint: LT RIB PX - Chief complaint Chief Complaint: General - History obtained from History obtained from: Patient - History of Present Illness Timing - onset: How many days ago (8) Timing - onset during: Other (twisting movement of trunk) Timing - duration: Days (8) Timing - details: Abrupt onset, Still present Quality: Sharp, Pain Location: Left chest, Upper back Radiation: No: Jaw, Neck, Back, Abdominal, Left upper extremity, Right upper extremity Improved by: Rest Worsened by: Inspiration, Movement, Palpation, Position Associated symptoms: No: Shortness of air, Diaphoresis, Nausea, Vomiting, Feeling faint / dizzy, General Weakness, Palpitations, Cough Similar symptoms before: Has not had sx before Recently seen: Not recently seen - Additional information Additional information: 24-year-old female that reports that 1 week ago she was taking her child's car seat out of the car twisting her body in an odd fashion when she had the sudden onset of some pain in the left posterior rib area and she has had persistence of this pain since and it is somewhat worse today than usual. She is having some difficulty with catching a full deep breath and with laying on her right side she has a specific area of tenderness which will take her breath away. She does not have cough or fever. Review of Systems Constitutional: denies: Fever Eyes: denies: Decreased vision Ears: denies: Ear pain Nose: denies: Congestion Throat: denies: Sore throat Cardiac: reports: Chest pain / pressure. 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 : None HEENT: None Psych: Depression, Anxiety Musculoskeletal: Other Derm: Psoriasis - Past Surgical History Past Surgical History: Yes HEENT: Tonsil/Adenoidectomy - Present Medications Home Medications: Ambulatory Orders Medication Instructions Recorded Confirmed Ferrous Gluconate [Iron] 02/12/19 Metoclopramide [Reglan] 02/12/19 Pnv No.95/Ferrous Fum/Folic AC 02/12/19 [ Caplet] buPROPion [Wellbutrin Xl] 02/12/19 Cyclobenzaprine [Flexeril] 10 mg PO TID PRN #20 tablet 09/11/19 Hydrocodone/Acetaminophen 1 - 2 tab PO Q6H PRN #14 tablet 09/11/19 [Hydrocodone-Acetamin 5-325 mg] predniSONE [Deltasone] 20 mg PO [id number] #21 tab 09/11/19 traMADol [Ultram] 50 - 100 mg PO Q6H PRN #20 tablet 12/10/19 - Allergies Allergies/Adverse Reactions: Allergies Allergy/AdvReac Type Severity Reaction Status Date / Time No Known Drug Allergies Allergy Verified 12/10/19 11:19 - Social History Does the pt smoke?: No Smoking Status: Never smoker Does the pt drink ETOH?: Yes Does the pt have substance abuse?: Yes - Immunizations Immunizations are current?: Yes - POLST Patient has POLST: No POLST Status: Full Code PD ED PE NORMAL - Vitals Vital signs reviewed: Yes (normal ) - General General: Alert and oriented X 3, No acute distress, Well developed/nourished - HEENT HEENT: Atraumatic, PERRL, EOMI - Neck Neck: Supple, no meningeal sign, No bony TTP - Cardiac Cardiac: RRR, No murmur - Respiratory Respiratory: No respiratory distress, Clear bilaterally, Other (There is a specific area of tenderness to the posterior chest wall on the left side just medial to the rhomboids on the left ) - Abdomen Abdomen: Soft, Non tender - Back Back: No CVA TTP, No spinal TTP - Derm Derm: Normal color, Warm and dry, No rash - Extremities Extremities: No deformity, No edema - Neuro Neuro: Alert and oriented X 3, beater lead 2-12 intact, No motor deficit, No sensory deficit, Normal speech Eye Opening: Spontaneous Motor: Obeys Commands Verbal: Oriented GCS Score: 15 - Psych Psych: Normal mood, Normal affect Results - Vitals Vitals: Vital Signs - 24 hr 12/10/19 11:15 Temperature 37 C Heart Rate 72 Respiratory 16 Rate Blood Pressure 125/60 O2 Saturation 99 Oxygen O2 Source Room air - Rads (name of study) ribs with PA chest Radiology: Prelim report reviewed (: Normal exam. Thoracic osseous structures intact. No acute cardiac or pulmonary process.), EMP read indepedently, See rad report PD MEDICAL DECISION MAKING - ED course Complexity details: reviewed results, re-evaluated patient, considered differential, d/w patient ED course: 24-year-old female with rhomboid pain was administered dexamethasone and Toradol we will place her on a short course of pain medication as needed. Departure - Departure Disposition: 01 Home, Self Care Clinical Impression: Strain of chest wall Qualifiers: Encounter type: initial encounter Qualified Code(s): S29.011A - Strain of muscle and tendon of front wall of thorax, initial encounter Condition: Stable Instructions: ED Contusion Chest Wall Follow-Up: ELISA MOON DO [Primary Care Provider] - Prescriptions: traMADol [Ultram] 50 - 100 mg PO Q6H PRN #20 tablet PRN Reason: Pain
--- NOTE | 2019-12-10 12:22 | XRAY Report ---
PROCEDURE: Ribs w/PA Chest LT INDICATIONS: Rhomboid pain/rib pain TECHNIQUE: 2 views of the left ribs were acquired, along with a single view chest. COMPARISON: None FINDINGS: Surgical changes and devices: None. Bones and chest wall: No fractures or dislocations. No suspicious bony lesions. Overlying soft tis sues appear unremarkable. Lungs and pleura: No pleural effusions or pneumothorax. Lungs appear clear. Mediastinum: Mediastinal contours appear normal. Heart size is normal. IMPRESSION: Normal exam. Thoracic osseous structures intact. No acute cardiac or pulmonary process. Reviewed by: Kenan Baez MD on 12/10/2019 12:21 PM PDT Approved by: Kenan Baez MD on 12/10/2019 12:21 PM PDT Station ID: [id number]
[2019-12-10] MEDS ORDERED: CHERRY SYRUP 10 ML UDC PO ONE (12:35)
[2019-12-10] MEDS ORDERED: DEXAMETHASONE 10 MG/ML VIAL PO STA (12:35)
[2019-12-10] MEDS ORDERED: KETOROLAC 60 MG/2 ML VIAL IM STA (12:35)
== END 2019-12-10 12:53 | disposition home or self-care (01) ==
LOC: ED 10:49
DX: S29.011A Strain of muscle and tendon of front wall of thorax, initial encounter (principal); X50.1XXA Overexertion from prolonged static or awkward postures, initial encounter; Y93.89 Activity, other specified; Y92.89 Other specified places as the place of occurrence of the external cause
CPT/HCPCS: 71101; 96372; 99283; 99284; A9270

== ENCOUNTER 2020-04-06 05:05 | Emergency (ER) | payer MEDICAID ==
[2020-04-06 05:49] LABS: BILIRUBIN,URINE NEGATIVE (NEGATIVE); GLUCOSE, URINE (UA) NEGATIVE (NEGATIVE); KETONES,URINE (UA) NEGATIVE (NEGATIVE); LEUKOCYTE ESTERASE, URINE NEGATIVE (NEGATIVE); NITRITE,URINE NEGATIVE (NEGATIVE); OCCULT BLOOD,URINE NEGATIVE (NEGATIVE); PROTEIN,URINE NEGATIVE (NEGATIVE); UROBILINOGEN,URINE 0.2 (NORMAL) E.U./dL (NORMAL)
[2020-04-06 05:50] LABS: BASOPHILS % (AUTO) 0.5 %; EOSINOPHILS # (AUTO) 0.3 10^3/uL (0.0-0.7); EOSINOPHILS % (AUTO) 3.9 %; HGB - HEMOGLOBIN 13.4 g/dL (12.0-16.0); LYMPHOCYTES # (AUTO) 2.6 10^3/uL (1.5-3.5); LYMPHOCYTES % (AUTO) 30.7 %; MEAN CORPUSCULAR HEMOGLOBIN 28.9 pg (27.0-31.0); MEAN CORPUSCULAR HGB CONC 32.5 g/dL (32.0-36.0); MEAN PLATELET VOLUME 10.6 fL (7.9-10.8); MONOCYTES # (AUTO) 0.7 10^3/uL (0.0-1.0); MONOCYTES % (AUTO) 8.5 %; NEUTROPHILS # (AUTO) 4.8 10^3/uL (1.5-6.6); NEUTROPHILS % (AUTO) 56.2 %; PLT - PLATELET COUNT 328 10^3/uL (130-450); RED BLOOD COUNT 4.63 10^6/uL (4.20-5.40); RED CELL DISTRIBUTION WIDTH 12.7 % (12.0-15.0); WHITE BLOOD COUNT 8.6 x10^3/uL (4.8-10.8)
[2020-04-06 05:51] LABS: CLARITY,URINE CLEAR (CLEAR)
[2020-04-06 05:59] LABS: ALBUMIN 4.4 g/dL (3.2-5.5); ALBUMIN/GLOBULIN RATIO 1.8 (1.0-2.2); BILIRUBIN,TOTAL 0.6 mg/dL (0.2-1.0); CALCIUM 8.7 mg/dL (8.5-10.3); CREATININE 0.6 mg/dL (0.4-1.0); TOTAL PROTEIN 6.9 g/dL (6.7-8.2)
[2020-04-06] MEDS ORDERED: ONDANSETRON 4 MG/2 ML VIAL IVP STA (06:39)
[2020-04-06] MEDS ORDERED: KETOROLAC 15 MG/ML VIAL IVP PRN (06:39)
--- NOTE | 2020-04-06 06:47 | ED Physician Documentation ---
History of Present Illness - Stated complaint Stated Complaint: BLOODY STOOL, ABD PX RT SIDE - Chief complaint Chief Complaint: Abd Pain - History obtained from History obtained from: Patient - Additonal information Additional information: 25-year-old woman with past medical history of IBS, family history of IBD presents with constipation for the past 5 days with hard stool daily and small amounts of bright red blood intermixed with brown stool. Patient has been taking MiraLAX without relief. Denies hemorrhoids. Denies fevers. She came to the emergency room because she woke up suddenly in the middle of the night with right lower quadrant pain radiating to the suprapubic and periumbilical region, constant, aching, severe, now tapering down, associated with nausea. Denies urinary symptoms. Denies diarrhea. No vomiting. Review of Systems Constitutional: denies: Fever GI: reports: Abdominal Pain, Nausea, Constipation, Bloody / black stool. 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 HEENT: None Psych: Depression, Anxiety Musculoskeletal: Other Derm: Psoriasis Other Past Medical History: PCOS - Past Surgical History Past Surgical History: Yes HEENT: Tonsil/Adenoidectomy - Present Medications Home Medications: Ambulatory Orders Medication Instructions Recorded Confirmed Ferrous Gluconate [Iron] 240 mg PO DAILY 02/12/19 04/06/20 DULoxetine [Cymbalta] 30 mg PO BID 04/06/20 04/06/20 Docusate Sodium 100Mg Capsule 100 mg PO DAILY #30 cap 04/06/20 [Colace 100Mg Capsule] HYDROcod/ACETAM 5/325 [[place] 5/325] 1 ea PO Q6H PRN #14 tab 04/06/20 Naproxen Sodium [Anaprox Ds] 550 mg PO BID #20 tab 04/06/20 buPROPion HCL [Bupropion HCl] 75 mg PO BID 04/06/20 04/06/20 - Allergies Allergies/Adverse Reactions: Allergies Allergy/AdvReac Type Severity Reaction Status Date / Time No Known Drug Allergies Allergy Verified 04/06/20 05:22 - Social History Does the pt smoke?: No Smoking Status: Never smoker Does the pt drink ETOH?: Yes Does the pt have substance abuse?: Yes - Immunizations Immunizations are current?: Yes - POLST Patient has POLST: No POLST Status: Full Code PD ED PE NORMAL - Vitals Vital signs reviewed: Yes - General General: Alert and oriented X 3, No acute distress, Well developed/nourished - HEENT HEENT: Atraumatic, PERRL, EOMI - Neck Neck: Supple, no meningeal sign - Cardiac Cardiac: RRR - Respiratory Respiratory: No respiratory distress, Clear bilaterally - Abdomen Abdomen: Other (ttp in RLQ, suprapubic, epigastric region) - Female Female : Deferred - Rectal Rectal: Other (single nonthrombosed hemorrhoid. ) - Back Back: No CVA TTP - Derm Derm: Normal color, Warm and dry - Extremities Extremities: No deformity - Neuro Neuro: Alert and oriented X 3 - Psych Psych: Normal mood, Normal affect Results - Vitals Vitals: Vital Signs - 24 hr 04/06/20 04/06/20 05:05 08:58 Temperature 36.9 C 36.6 C Heart Rate 84 78 Respiratory 16 16 Rate Blood Pressure 123/106 H 122/84 H O2 Saturation 99 98 Oxygen O2 Source Room air - Labs Labs: Laboratory Tests 04/06/20 04/06/20 04/06/20 05:20 05:33 05:33 WBC 8.6 RBC 4.63 Hgb 13.4 Hct 41.2 MCV 89.0 MCH 28.9 MCHC 32.5 RDW 12.7 Plt Count 328 MPV 10.6 Neut # (Auto) 4.8 Lymph # (Auto) 2.6 [place] # (Auto) 0.7 Eos # (Auto) 0.3 Baso # (Auto) 0.0 Absolute Nucleated RBC 0.00 Nucleated RBC % 0.0 Sodium 138 Potassium 4.0 Chloride 109 Carbon Dioxide 21 Anion Gap 8.0 BUN 17 Creatinine 0.6 Estimated GFR (MDRD) 121 Glucose 103 H Calcium 8.7 Total Bilirubin 0.6 AST 13 ALT 14 Alkaline Phosphatase 51 Total Protein 6.9 Albumin 4.4 Globulin 2.5 Albumin/Globulin Ratio 1.8 Lipase 40 Serum HCG, Qual Urine Color YELLOW Urine Clarity CLEAR Urine pH 6.0 Ur Specific [place] >=1.030 H Urine Protein NEGATIVE Urine Glucose (UA) NEGATIVE Urine Ketones NEGATIVE Urine Occult Blood NEGATIVE Urine Nitrite NEGATIVE Urine Bilirubin NEGATIVE Urine Urobilinogen 0.2 (NORMAL) Ur Leukocyte Esterase NEGATIVE Ur Microscopic Review NOT INDICATED Urine Culture Comments NOT INDICATED 04/06/20 05:55 WBC RBC Hgb Hct MCV MCH MCHC RDW Plt Count MPV Neut # (Auto) Lymph # (Auto) [place] # (Auto) Eos # (Auto) Baso # (Auto) Absolute Nucleated RBC Nucleated RBC % Sodium Potassium Chloride Carbon Dioxide Anion Gap BUN Creatinine Estimated GFR (MDRD) Glucose Calcium Total Bilirubin AST ALT Alkaline Phosphatase Total Protein Albumin Globulin Albumin/Globulin Ratio Lipase Serum HCG, Qual NEGATIVE Urine Color Urine Clarity Urine pH Ur Specific [place] Urine Protein Urine Glucose (UA) Urine Ketones Urine Occult Blood Urine Nitrite Urine Bilirubin Urine Urobilinogen Ur Leukocyte Esterase Ur Microscopic Review Urine Culture Comments PD MEDICAL DECISION MAKING - ED course ED course: 25-year-old woman with family history of IBD presents with bloody stools over the past [address] and evaluate further. Patient endorsed to autumn Kamara For further management and care. Departure - Departure Disposition: 01 Home, Self Care Clinical Impression: Right lower quadrant abdominal pain, Constipation, Hematochezia Condition: Stable Follow-Up: ELISA MOON DO [Primary Care Provider] - Prescriptions: Naproxen Sodium [Anaprox Ds] 550 mg PO BID #20 tab Docusate Sodium 100Mg Capsule [Colace 100Mg Capsule] 100 mg PO DAILY #30 cap HYDROcod/ACETAM 5/325 [[place] 5/325] 1 ea PO Q6H PRN #14 tab PRN Reason: Pain Comments: Your CT scan showed normal appendix and generally normal intestines. Your IUD is in the correct position. No other acute significant abnormality. They do comment on a moderate amount of stool localized to the right colon. This may account for the pain in the area and some irritation of the intestinal wall leading to some bleeding. Conversely it is possible there is an underlying inflammatory bowel process that is causing sludging of the stool in the area and your symptoms. This may need further investigating once you are feeling well with other tests. One such test would be colonoscopy. Typically that is not done while there is current inflammation/irritation. Stay well-hydrated. Use anti-inflammatory of naproxen twice daily. To that add Tylenol or hydrocodone every 6 hours if needed for worse pain. Also docusate stool softener twice daily for the first few days and then once daily for a few weeks. Recheck if not improved well over the next several days and return if worsening.
[2020-04-06] MEDS ORDERED: IOVERSOL 320 100 ML VIAL IVP ONE ×2 (06:54→07:01)
[2020-04-06 07:11] LABS: HCG,QUALITATIVE BLOOD NEGATIVE
--- NOTE | 2020-04-06 08:09 | CT Report ---
PROCEDURE: Abdomen/Pelvis W INDICATIONS: RLQ pain, bloody stools, FH IBD. CONTRAST: IV CONTRAST: Optiray 320 ml: 100 PO CONTRAST: *NO PO CONTRAST TECHNIQUE: After the administration of intravenous contrast, 5 mm thick sections acquired from the diaphragms to the symphysis. 5 mm thick coronal and sagittal reformats were acquired. For radiation dose reducti on, the following was used: automated exposure control, adjustment of mA and/or kV according to paz ent size. COMPARISON: 09/22/2013. FINDINGS: Image quality: Excellent. ABDOMEN: Lung bases: Lung bases are clear. Heart size is normal. Solid organs: Liver and spleen are normal in size and enhancement. Gallbladder is unremarkable. Bi liary system is non dilated. Pancreas enhances normally. No adrenal nodules. Kidneys demonstrate n ormal size and enhancement, without hydronephrosis. Peritoneum and bowel: Bowel loops demonstrate normal wall thickness and caliber. No free fluid or a ir. Normal appendix. Moderate fecal load. Nodes and vessels: No retroperitoneal or mesenteric adenopathy by size criteria. However, there are numerous mesenteric lymph nodes present. There are not abnormal by size criteria. They are similar in size and number to the previous study from 2013 Aorta and inferior vena cava are normal in size. Miscellaneous: No ventral hernias. PELVIS: Genitourinary: Bladder wall thickness is normal. Miscellaneous: No inguinal hernias or adenopathy. IUD in satisfactory position. Bilateral cystic ad nexa. Bones: No suspicious bony lesions. No vertebral body compression fractures. IMPRESSION: 1. Normal appendix. 2. Normal appearance of bowel. 3. Numerous mesenteric lymph nodes are again noted, normal in size, not significantly changed. These may represent mesenteric adenitis. 4. Moderate fecal load. Reviewed by: Stephen Daniel MD on 04/06/2020 8:07 AM PST Approved by: Stephen Daniel MD on 04/06/2020 8:07 AM PST Station ID: [id number]
[2020-04-06] MEDS ORDERED: ACETAMINOPHEN 325 MG TABLET PO STA (08:11)
[2020-04-06] MEDS ORDERED: DOCUSATE SODIUM 100 MG CAPSULE PO STA (08:11)
--- NOTE | 2020-04-06 08:14 | ED Physician Documentation ---
ED Addendum - Addendum Addendum: 04/06/20 08:11 The patient was seen post shift change. She had moderate relief from the Toradol injection. Still having some pains. She is driving herself home so we can add some Tylenol. Review of the CT scan showed normal appendix and bowel. There is a moderate amount of colonic stool burden in the right colon. Some local air-fluid levels. Consideration of constipation. No obvious intestinal wall abnormalities. IUD is in position. The findings give possibility of some constipation causing bowel irritation and therefore the pains and blood in the stool. Conversely, an inflammatory bowel condition could still cause this with subsequent local change in peristalsis marge ding to some localized constipation. I reviewed these possibilities with the patient. She will follow up with her primary care for further further evaluation which may include colonoscopy. This would not want to be done now with the current irritation but for a future time. Currently we will treat this with anti-inflammatories and stool softeners and add in mild amounts of pain medicine if needed. Recheck if not improved over the next few days.
[2020-04-06 08:58] VITALS: BP 122/84
== END 2020-04-06 09:00 | disposition home or self-care (01) ==
LOC: ED 05:05
DX: K59.00 Constipation, unspecified (principal); K92.1 Melena; K64.9 Unspecified hemorrhoids; R10.31 Right lower quadrant pain; Z83.79 Family history of other diseases of the digestive system; Z97.5 Presence of (intrauterine) contraceptive device
CPT/HCPCS: 36415; 74177; 80053; 81003; 83690; 84703; 85025; 96374; 99284; A9270; Q9967; 81001; 87086

== ENCOUNTER 2020-05-05 17:11 | Outpatient (CLI) | payer MEDICAID | END 2020-05-05 17:12 | disposition critical access hospital (66) | LOC: EMS 17:11 | PROVIDERS: ATTEND Emergency Medicine | DX: L50.9 Urticaria, unspecified (principal); R22.0 Localized swelling, mass and lump, head | CPT/HCPCS: A0425; A0427; A0999 ==

== ENCOUNTER 2020-05-05 17:32 | Emergency (ER) | payer MEDICAID ==
[2020-05-05] MEDS ORDERED: DEXAMETHASONE 10 MG/ML VIAL IVP STA (18:57)
--- NOTE | 2020-05-05 19:04 | ED Physician Documentation ---
History of Present Illness - Stated complaint Stated Complaint: ALLERGIC REACTION - Chief complaint Chief Complaint: Allergic Rx - History obtained from History obtained from: Patient - Additonal information Additional information: 25yF with no known allergies p/w anaphylactic reaction after dying her hair green yesterday. patient states she had gradual onset throat tightening and pruritic rash around the neck and shoulders as well as change in voice quality prompting treatment with IM epi at walk in clinic around 4:45pm. 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 on arrival to ed patient states her voice is back to normal. rash is minimal at this time. denies n/v, lightheadedness, mendosa, vision changes. 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: None Psych: Depression, Anxiety Musculoskeletal: Other Derm: Psoriasis - Past Surgical History Past Surgical History: Yes HEENT: Tonsil/Adenoidectomy - Present Medications Home Medications: Ambulatory Orders Medication Instructions Recorded Confirmed Ferrous Gluconate [Iron] 240 mg PO DAILY 02/12/19 04/06/20 DULoxetine [Cymbalta] 30 mg PO BID 04/06/20 04/06/20 Docusate Sodium 100Mg Capsule 100 mg PO DAILY #30 cap 04/06/20 [Colace 100Mg Capsule] HYDROcod/ACETAM 5/325 [[place] 5/325] 1 ea PO Q6H PRN #14 tab 04/06/20 Naproxen Sodium [Anaprox Ds] 550 mg PO BID #20 tab 04/06/20 buPROPion HCL [Bupropion HCl] 75 mg PO BID 04/06/20 04/06/20 EPINEPHrine [Epinephrine] 0.3 mg IJ ONCE PRN #2 ea 05/05/20 - Allergies Allergies/Adverse Reactions: Allergies Allergy/AdvReac Type Severity Reaction Status Date / Time No Known Drug Allergies Allergy Verified 04/06/20 05:22 - Social History Does the pt smoke?: No Smoking Status: Never smoker Does the pt drink ETOH?: Yes Does the pt have substance abuse?: Yes - Immunizations Immunizations are current?: Yes - POLST Patient has POLST: No POLST Status: Full Code PD ED PE NORMAL - Vitals Vital signs reviewed: Yes - General General: Alert and oriented X 3, No acute distress, Well developed/nourished - HEENT HEENT: Atraumatic, PERRL, EOMI, Moist mucous membranes, Pharynx benign - Neck Neck: Other (normal upper airway sounds on neck auscultation) - Cardiac Cardiac: RRR - Respiratory Respiratory: No respiratory distress, Clear bilaterally - Abdomen Abdomen: Non tender, Non distended - Derm Derm: Other (faint erythematous rash around neck) - Extremities Extremities: No edema - Neuro Neuro: Alert and oriented X 3, Normal speech - Psych Psych: Normal mood, Normal affect Results - Vitals Vitals: Vital Signs - 24 hr 05/05/20 05/05/20 05/05/20 17:44 17:50 19:33 Temperature 37.0 C 37.0 C Heart Rate 67 67 66 Respiratory 18 18 16 Rate Blood Pressure 118/73 118/73 96/56 L O2 Saturation 100 100 100 Oxygen O2 Source Room air PD MEDICAL DECISION MAKING - ED course Complexity details: re-evaluated patient, d/w patient ED course: 25yF presents s/p severe allergic reaction, improved significantly with IM epi and benadryl 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 steroid added in the ED and patient had further resolution of her rash. She states she feels safe with discharge and would prefer to go home to wash the dye from her hair in lieu of further monitoring. strict return precautions given. extensive education given about anaphylaxis and epipen script will be provided. patient will f/u with her pcp. Departure - Departure Disposition: 01 Home, Self Care Clinical Impression: Allergic reaction Condition: Good Instructions: EpiPen Auto Injector Dc, ED Anaphylaxis General Prescriptions: EPINEPHrine [Epinephrine] 0.3 mg IJ ONCE PRN #2 ea PRN Reason: Anaphylaxis Comments: You were seen in the emergency department for a severe allergic reaction. Please wash the green dye out of your hair as soon as possible. Use topical cortisone cream on your neck and take Benadryl every 6 hours until the diarrhea is completely gone. 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 Please return to the emergency department if you have any new or worsening symptoms or other concerns. Follow- up with your primary doctor this week. Discharge Date/Time: 05/05/20 19:35
[2020-05-05 19:35] VITALS: BP 96/56
== END 2020-05-05 19:35 | disposition home or self-care (01) ==
LOC: EDUNIT# → ED 17:32 → SUPCPDRO 17:32 → ED 19:35
DX: T78.49XA Other allergy, initial encounter (principal)
CPT/HCPCS: 96374; 99284

== ENCOUNTER 2020-09-08 12:51 | Emergency (ER) | payer MEDICAID ==
[2020-09-08 12:58] VITALS: BP 119/66
--- NOTE | 2020-09-08 13:09 | ED Physician Documentation ---
History of Present Illness - Stated complaint Stated Complaint: RASH - Chief complaint Chief Complaint: Allergic Rx - History obtained from History obtained from: Patient (About 3 days ago after starting a new deodorant she developed an itchy rash in the armpits which did not resolve with oral Benadryl. 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 HEENT: None Psych: Depression, Anxiety Musculoskeletal: Other Derm: Psoriasis - Past Surgical History Past Surgical History: Yes HEENT: Tonsil/Adenoidectomy - Present Medications Home Medications: Ambulatory Orders Medication Instructions Recorded Confirmed Ferrous Gluconate [Iron] 240 mg PO DAILY 02/12/19 04/06/20 DULoxetine [Cymbalta] 30 mg PO BID 04/06/20 04/06/20 Docusate Sodium 100Mg Capsule 100 mg PO DAILY #30 cap 04/06/20 [Colace 100Mg Capsule] HYDROcod/ACETAM 5/325 [[place] 5/325] 1 ea PO Q6H PRN #14 tab 04/06/20 Naproxen Sodium [Anaprox Ds] 550 mg PO BID #20 tab 04/06/20 buPROPion HCL [Bupropion HCl] 75 mg PO BID 04/06/20 04/06/20 EPINEPHrine [Epinephrine] 0.3 mg IJ ONCE PRN #2 ea 05/05/20 Triamcinolone 0.1% Oint 1 applic TOP BID #80 gm 09/08/20 - Allergies Allergies/Adverse Reactions: Allergies Allergy/AdvReac Type Severity Reaction Status Date / Time No Known Drug Allergies Allergy Verified 09/08/20 12:54 - Social History Does the pt smoke?: No Smoking Status: Never smoker Does the pt drink ETOH?: Yes Does the pt have substance abuse?: Yes - Immunizations Immunizations are current?: Yes - POLST Patient has POLST: No POLST Status: Full Code PD ED PE NORMAL - Vitals Vital signs reviewed: Yes - General General: Alert and oriented X 3, No acute distress - Derm Derm: Other (Kind of a scaly eczematous appearing rash in both axilla) - Neuro Neuro: Alert and oriented X 3, Normal speech Results - Vitals Vitals: Vital Signs - 24 hr 09/08/20 12:54 Temperature 36.5 C Heart Rate 82 Respiratory 16 Rate Blood Pressure 119/66 O2 Saturation 97 Oxygen O2 Source Room air Departure - Departure Disposition: 01 Home, Self Care Clinical Impression: Contact dermatitis Qualifiers: Contact dermatitis type: irritant Contact dermatitis trigger: unspecified trigger Qualified Code(s): L24.9 - Irritant contact dermatitis, unspecified cause Condition: Good Record reviewed to determine appropriate education?: Yes Instructions: ED Allergic Reaction Local Other Follow-Up: [facility] [Provider Group] (about 1 week if not better) Prescriptions: Triamcinolone 0.1% Oint 1 applic TOP BID #80 gm Comments: Change brands of deodorant. Return for new or worsening symptoms.
== END 2020-09-08 13:12 | disposition home or self-care (01) ==
LOC: ED 12:51
DX: L24.89 Irritant contact dermatitis due to other agents (principal)
CPT/HCPCS: 99282; 99283

== ENCOUNTER 2020-10-17 10:51 | Emergency (ER) | payer MEDICAID ==
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
[2020-10-17 12:09] LABS: BILIRUBIN,URINE NEGATIVE (NEGATIVE); GLUCOSE, URINE (UA) NEGATIVE (NEGATIVE); KETONES,URINE (UA) NEGATIVE (NEGATIVE); LEUKOCYTE ESTERASE, URINE NEGATIVE (NEGATIVE); NITRITE,URINE NEGATIVE (NEGATIVE); OCCULT BLOOD,URINE NEGATIVE (NEGATIVE); PROTEIN,URINE NEGATIVE (NEGATIVE); UROBILINOGEN,URINE 0.2 (NORMAL) E.U./dL (NORMAL)
[2020-10-17 12:13] LABS: BASOPHILS # (AUTO) 0.1 10^3/uL (0.0-0.1); BASOPHILS % (AUTO) 0.9 %; EOSINOPHILS # (AUTO) 0.1 10^3/uL (0.0-0.7); EOSINOPHILS % (AUTO) 1.1 %; HGB - HEMOGLOBIN 14.6 g/dL (12.0-16.0); LYMPHOCYTES # (AUTO) 1.8 10^3/uL (1.5-3.5); LYMPHOCYTES % (AUTO) 27.4 %; MEAN CORPUSCULAR HEMOGLOBIN 29.3 pg (27.0-31.0); MEAN CORPUSCULAR VOLUME 86.3 fL (81.0-99.0); MEAN PLATELET VOLUME 10.7 fL (7.9-10.8); MONOCYTES # (AUTO) 0.6 10^3/uL (0.0-1.0); MONOCYTES % (AUTO) 9.5 %; NEUTROPHILS % (AUTO) 60.8 %; PLT - PLATELET COUNT 307 10^3/uL (130-450); RED BLOOD COUNT 4.98 10^6/uL (4.20-5.40); RED CELL DISTRIBUTION WIDTH 12.4 % (12.0-15.0); WHITE BLOOD COUNT 6.5 x10^3/uL (4.8-10.8)
[2020-10-17 12:21] LABS: HCG UR QUAL NEGATIVE
[2020-10-17 12:23] LABS: ALBUMIN 4.5 g/dL (3.2-5.5); ALBUMIN/GLOBULIN RATIO 1.5 (1.0-2.2); BILIRUBIN,TOTAL 0.6 mg/dL (0.2-1.0); CALCIUM 9.4 mg/dL (8.5-10.3); CREATININE 0.6 mg/dL (0.4-1.0); POTASSIUM 3.9 mmol/L (3.5-5.0); TOTAL PROTEIN 7.5 g/dL (6.7-8.2)
[2020-10-17] MEDS ORDERED: ACETAMINOPHEN 325 MG TABLET PO STA (12:23)
[2020-10-17] MEDS ORDERED: ONDANSETRON ODT 4 MG TABLET TL STA (12:23)
[2020-10-17 12:28] LABS: MUDS CUTOFF CONCENTRATIONS CUTOFF CONC BELOW:
[2020-10-17 12:44] LABS: AMPHETAMINE SCREEN,URINE NEGATIVE (NEGATIVE); BARBITURATE SCREEN,UR NEGATIVE (NEGATIVE); BENZODIAZEPINES SCREEN, URINE NEGATIVE (NEGATIVE); COCAINE SCREEN URINE NEGATIVE (NEGATIVE); METHADONE SCREEN, URINE NEGATIVE (NEGATIVE); METHAMPHETAMINES SCREEN, URINE NEGATIVE (NEGATIVE); OPIATE SCREEN, URINE NEGATIVE (NEGATIVE); OXYCODONE SCREEN, URINE NEGATIVE (NEGATIVE); PROPOXYPHENE SCREEN, URINE NEGATIVE (NEGATIVE); THC CANNABINOID SCREEN, URINE POSITIVE (NEGATIVE); TRICYCLIC ANTIDEPRESSANT,URINE NEGATIVE (NEGATIVE)
[2020-10-17 13:25] LABS: CLARITY,URINE CLEAR (CLEAR)
[2020-10-17 14:09] VITALS: BP 117/71
== END 2020-10-17 14:09 | disposition home or self-care (01) ==
LOC: ED 10:51
DX: R41.0 Disorientation, unspecified (principal); R51.9 Headache, unspecified; R11.0 Nausea
CPT/HCPCS: 36415; 80053; 80306; 81003; 81025; 83690; 85025; 99282; 99283; A9270; Q0162; 81001; 87086

== ENCOUNTER 2021-03-10 19:49 | Emergency (ER) | payer MEDICAID ==
[2021-03-10] MEDS ORDERED: AMOX/CLAV 875 MG/125 MG TABLET PO STA (20:25)
[2021-03-10] MEDS ORDERED: IBUPROFEN 800 MG TABLET PO STA (20:25)
--- NOTE | 2021-03-10 20:30 | ED Physician Documentation ---
History of Present Illness - Stated complaint Stated Complaint: DOG BITE - Chief complaint Chief Complaint: Laceration - History obtained from History obtained from: Patient, Family - History of Present Illness Timing: Today Pain level max: 5 Pain level now: 4 - Additonal information Additional information: Patient is a 26-year-old female who presents to the emergency department with a dog bite to the right wrist. She states that she has 2 dogs that are food aggressive and they were fighting over a plate of food. Tetanus is up-to-date. She is right-handed. Worse with movement, better with rest. 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 HEENT: None Psych: Depression, Anxiety Musculoskeletal: Other Derm: Psoriasis - Past Surgical History Past Surgical History: Yes HEENT: Tonsil/Adenoidectomy - Present Medications Home Medications: Ambulatory Orders Medication Instructions Recorded Confirmed Ferrous Gluconate [Iron] 240 mg PO DAILY 02/12/19 04/06/20 DULoxetine [Cymbalta] 30 mg PO BID 04/06/20 04/06/20 Docusate Sodium 100Mg Capsule 100 mg PO DAILY #30 cap 04/06/20 [Colace 100Mg Capsule] HYDROcod/ACETAM 5/325 [[place] 5/325] 1 ea PO Q6H PRN #14 tab 04/06/20 Naproxen Sodium [Anaprox Ds] 550 mg PO BID #20 tab 04/06/20 buPROPion HCL [Bupropion HCl] 75 mg PO BID 04/06/20 04/06/20 EPINEPHrine [Epinephrine] 0.3 mg IJ ONCE PRN #2 ea 05/05/20 Triamcinolone 0.1% Oint 1 applic TOP BID #80 gm 09/08/20 Amox/Clav 875/125 [Augmentin] 1 tab PO Q12H #14 tablet 03/10/21 - Allergies Allergies/Adverse Reactions: Allergies Allergy/AdvReac Type Severity Reaction Status Date / Time No Known Drug Allergies Allergy Verified 03/10/21 19:56 - Social History Does the pt smoke?: No Smoking Status: Never smoker Does the pt drink ETOH?: Yes Does the pt have substance abuse?: Yes - Immunizations Immunizations are current?: Yes - POLST Patient has POLST: No POLST Status: Full Code PD ED PE NORMAL - Vitals Vital signs reviewed: Yes - General General: Alert and oriented X 3, No acute distress - HEENT HEENT: Moist mucous membranes - Neck Neck: Supple, no meningeal sign - Respiratory Respiratory: No respiratory distress - Derm Derm: Warm and dry - Extremities Extremities: Other (Bite to the R wrist, punctures, swelling over distal radius. NVI.) - Neuro Neuro: Alert and oriented X 3 - Psych Psych: Normal mood, Normal affect Results - Vitals Vitals: Vital Signs - 24 hr 03/10/21 03/10/21 19:56 21:10 Temperature 36.5 C 36.6 C Heart Rate 90 88 Respiratory 16 16 Rate Blood Pressure 135/81 H 130/87 H O2 Saturation 96 98 Oxygen O2 Source Room air - Rads (name of study) R wrist xray Radiology: Final report received, EMP read contemporaneously, See rad report (No fractures or foreign bodies) PD MEDICAL DECISION MAKING - ED course Complexity details: considered differential, d/w patient ED course: There are no lacerations to repair. Wounds were cleansed and bandaged. Tetanus up-to-date. We will place on Augmentin. Warnings of infection and instructions on wound care given at bedside. Also counseled on how to minimize scarring. Patient counseled regarding signs and symptoms for which I believe and urgent re-evaluation would be necessary. Patient with good understanding of and agreement to plan and is comfortable going home at this time This document was made in part using voice recognition software. While efforts are made to proofread this document, sound alike and grammatical errors may occur. Departure - Departure Disposition: 01 Home, Self Care Clinical Impression: Dog bite Qualifiers: Encounter type: initial encounter Qualified Code(s): W54.0XXA - Bitten by dog, initial encounter Condition: Good Instructions: ED Bite Dog Follow-Up: ELISA MOON DO [Primary Care Provider] - Within 1 week Prescriptions: Amox/Clav 875/125 [Augmentin] 1 tab PO Q12H #14 tablet Comments: Your prescriptions were sent to [facility] in [place]. Your x-ray does not show any acute abnormalities today. Please follow-up with your doctor for a wound check in about 1 week. Return if you worsen. Take all antibiotics until gone. Return for redness, swelling or drainage from the wound. Discharge Date/Time: 03/10/21 21:12
--- NOTE | 2021-03-10 20:49 | XRAY Report ---
PROCEDURE: Wrist 4 View RT INDICATIONS: dog bite to wrist TECHNIQUE: Four views of the wrist were acquired. COMPARISON: None FINDINGS: Bones: No fractures or dislocations. No suspicious bony lesions. Scaphoid view: Normal Soft tissues: No suspicious soft tissue calcifications. IMPRESSION: No foreign body or fracture. Reviewed by: Kenan Baez MD on 03/10/2021 8:47 PM PST Approved by: Kenan Baez MD on 03/10/2021 8:47 PM PST Station ID: [id number]
[2021-03-10 21:12] VITALS: BP 130/87
== END 2021-03-10 21:12 | disposition home or self-care (01) ==
LOC: ED 19:49
DX: S60.871A Other superficial bite of right wrist, initial encounter (principal); W54.0XXA Bitten by dog, initial encounter
CPT/HCPCS: 73110; 99282; 99283; A9270

== ENCOUNTER 2021-03-12 15:18 | Emergency (ER) | payer MEDICAID ==
--- NOTE | 2021-03-12 16:39 | ED Physician Documentation ---
History of Present Illness - Stated complaint Stated Complaint: SWELLING,FINGERS NUMB-DOG BITE - Chief complaint Chief Complaint: Wound - History obtained from History obtained from: Patient - History of Present Illness Timing: How many days ago (2) Pain level max: 0 Pain level now: 0 - Additonal information Additional information: 26-year-old female presents to the emergency department complaining of increasing redness and swelling to the right wrist following a dog bite 2 days ago. She has been taking Augmentin, but states the pain and swelling are increasing. No drainage. Occasional tingling to the fourth and fifth digits of the right hand. Worse with movement, nothing makes it better. No fevers. No chills. 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 HEENT: None Psych: Depression, Anxiety Musculoskeletal: Other Derm: Psoriasis - Past Surgical History Past Surgical History: Yes HEENT: Tonsil/Adenoidectomy - Present Medications Home Medications: Ambulatory Orders Medication Instructions Recorded Confirmed Ferrous Gluconate [Iron] 240 mg PO DAILY 02/12/19 04/06/20 DULoxetine [Cymbalta] 30 mg PO BID 04/06/20 04/06/20 Docusate Sodium 100Mg Capsule 100 mg PO DAILY #30 cap 04/06/20 [Colace 100Mg Capsule] HYDROcod/ACETAM 5/325 [[place] 5/325] 1 ea PO Q6H PRN #14 tab 04/06/20 Naproxen Sodium [Anaprox Ds] 550 mg PO BID #20 tab 04/06/20 buPROPion HCL [Bupropion HCl] 75 mg PO BID 04/06/20 04/06/20 EPINEPHrine [Epinephrine] 0.3 mg IJ ONCE PRN #2 ea 05/05/20 Triamcinolone 0.1% Oint 1 applic TOP BID #80 gm 09/08/20 Amox/Clav 875/125 [Augmentin] 1 tab PO Q12H #14 tablet 03/10/21 HYDROcod/ACETAM 5/325 [[place] 5/325] 1 - 2 ea PO Q6H PRN #14 tablet 03/12/21 Sulfamethox/Trimeth 800/160 1 each PO BID #14 tablet 03/12/21 [Bactrim Ds 800/160] - Allergies Allergies/Adverse Reactions: Allergies Allergy/AdvReac Type Severity Reaction Status Date / Time No Known Drug Allergies Allergy Verified 03/12/21 15:41 - Social History Does the pt smoke?: No Smoking Status: Never smoker Does the pt drink ETOH?: Yes Does the pt have substance abuse?: Yes - Immunizations Immunizations are current?: Yes - POLST Patient has POLST: No POLST Status: Full Code PD ED PE NORMAL - Vitals Vital signs reviewed: Yes - General General: Alert and oriented X 3, No acute distress - HEENT HEENT: Moist mucous membranes - Neck Neck: Supple, no meningeal sign - Cardiac Cardiac: RRR - Respiratory Respiratory: No respiratory distress, Clear bilaterally - Abdomen Abdomen: Soft, Non tender, Non distended - Derm Derm: Warm and dry - Extremities Extremities: Other (r arm - 10 x 4 cm area of erythema to the right wrist. She does have full range of motion. No evidence of septic joint. No abscess. No drainage. Extends from about the mid hand, dorsum to the distal third of the forearm. NVI) - Neuro Neuro: Alert and oriented X 3 Results - Vitals Vitals: Vital Signs - 24 hr 03/12/21 03/12/21 15:41 17:31 Temperature 36.8 C 36.5 C Heart Rate 72 64 Respiratory 18 16 Rate Blood Pressure 124/62 128/66 O2 Saturation 98 99 Oxygen O2 Source Room air Procedures - Splint (location) R arm Splint applied by: Physician, Tech Type of splint: Fiberglass, Short arm, Volar cock up Other: Patient tolerated well, No complications, Neurovascular intact PD MEDICAL DECISION MAKING - ED course Complexity details: reviewed old records, considered differential, d/w patient ED course: Patient with worsening cellulitis after a dog bite. She is on Augmentin. Given Rocephin and will add Bactrim. She does not want to stay in the hospital for IV antibiotics. We will broaden the antibiotic coverage and if she fails to improve as expected, we will then admit her for IV antibiotics. Patient is well-appearing, nontoxic. Afebrile. She is comfortable with this plan. She was placed in a volar splint, secured on just the 2 ends of the splint to help with her discomfort with movement. I am prescribing a short course of short-acting opioid pain medication for this patient. 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 I have discussed that the opioids are for short term therapy only, and will not be refilled from the ED. Patient counseled regarding signs and symptoms for which I believe and urgent re- evaluation would be necessary. Patient with good understanding of and agreement to plan and is comfortable going home at this time This document was made in part using voice recognition software. While efforts are made to proofread this document, sound alike and grammatical errors may occur. Departure - Departure Disposition: 01 Home, Self Care Clinical Impression: Dog bite Qualifiers: Encounter type: initial encounter Qualified Code(s): W54.0XXA - Bitten by dog, initial encounter Cellulitis Qualifiers: Site of cellulitis: extremity Site of cellulitis of extremity: upper extremity Laterality: right Qualified Code(s): L03.113 - Cellulitis of right upper limb Condition: Good Instructions: ED Bite Animal General, ED Infec Skin Cellulitis Follow-Up: ELISA MOON DO [Primary Care Provider] - Within 3 Days Prescriptions: Sulfamethox/Trimeth 800/160 [Bactrim Ds 800/160] 1 each PO BID #14 tablet HYDROcod/ACETAM 5/325 [[place] 5/325] 1 - 2 ea PO Q6H PRN #14 tablet PRN Reason: Pain Comments: You should begin to improve within the next 24 hours. If you are worsening, you need to return to be seen and admitted for IV antibiotics. If you are improving, please return on Monday for a wound check. Keep the splint in place as this will help with the discomfort. Keep the area of the wound open so you can monitor the wound. We marked the wound edges today as well. Continue your current antibiotic and start the new antibiotic in addition to this. Your prescriptions were sent to [facility] in [place]. I am prescribing a short course of narcotic pain medication for you. These are potentially dangerous and addictive medications that should be used carefully. These medications may constipate you. Take an [id number] stool softener (docusate) twice daily with plenty of water while taking these medications. If you go 24 hours without a bowel movement, take [id number] miralax, per package instructions. Do not drink or drive while taking these medications. If you received narcotic or sedating medications while in the emergency department, do not drive for 24 hours. Store this medication in a safe, secure place and out of reach of children. It is a violation of federal law to give or sell this medication to another person or to use in a manner other than prescribed. The ED will not refill narcotic prescriptions, including prescriptions lost or stolen. To dispose of unwanted medications: 1. [facility] [address] in [place] has a medication drop box. They accept prescription medications (in pill form) Monday through Monday 9:00 a.m. to 5:00 p.m. 2. [facility] [employer] accepts prescription medications (in pill form only) for disposal year round. Call for more information. 3. Contact the [facility] for the next [facility] sponsored prescription drug collection event. , [phone], or [phone]; Discharge Date/Time: 03/12/21 17:33
[2021-03-12] MEDS ORDERED: HYDROcod/ACETAM 5/325 MG TABLET PO STA (16:50)
[2021-03-12] MEDS ORDERED: cefTRIAXone 1 GM VIAL IM STA (16:50)
[2021-03-12] MEDS ORDERED: SULFAMETH/TRIMETH DS 800/160 MG TABLET PO STA (16:52)
[2021-03-12 17:32] VITALS: BP 128/66
== END 2021-03-12 17:33 | disposition home or self-care (01) ==
LOC: ED 15:18
DX: S61.551A Open bite of right wrist, initial encounter (principal); L03.113 Cellulitis of right upper limb; W54.0XXA Bitten by dog, initial encounter
CPT/HCPCS: 96372; 99283; 99284; A9270

== ENCOUNTER 2021-03-20 14:33 | Emergency (ER) | payer MEDICAID ==
[2021-03-20 14:44] VITALS: BP 139/76
[2021-03-20] MEDS ORDERED: FLUCONAZOLE 100 MG TABLET PO STA (14:44)
--- NOTE | 2021-03-20 15:07 | ED Physician Documentation ---
History of Present Illness - Stated complaint Stated Complaint: FEMALE - Chief complaint Chief Complaint: General - History obtained from History obtained from: Patient - History of Present Illness Timing: Today Pain level max: 0 Pain level now: 0 - Additonal information Additional information: 26-year-old female presents to the emergency department complaint of vaginal discharge. She states that it is white, thick and she has vaginal itching. Started after two recent rounds of antibiotics for a dog bite. She is here requesting Diflucan. She states she also had a recent change in sexual partners, but no STI exposure. 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 HEENT: None Psych: Depression, Anxiety Musculoskeletal: Other Derm: Psoriasis - Past Surgical History Past Surgical History: Yes HEENT: Tonsil/Adenoidectomy - Present Medications Home Medications: Ambulatory Orders Medication Instructions Recorded Confirmed Ferrous Gluconate [Iron] 240 mg PO DAILY 02/12/19 04/06/20 DULoxetine [Cymbalta] 30 mg PO BID 04/06/20 04/06/20 Docusate Sodium 100Mg Capsule 100 mg PO DAILY #30 cap 04/06/20 [Colace 100Mg Capsule] HYDROcod/ACETAM 5/325 [[place] 5/325] 1 ea PO Q6H PRN #14 tab 04/06/20 Naproxen Sodium [Anaprox Ds] 550 mg PO BID #20 tab 04/06/20 buPROPion HCL [Bupropion HCl] 75 mg PO BID 04/06/20 04/06/20 EPINEPHrine [Epinephrine] 0.3 mg IJ ONCE PRN #2 ea 05/05/20 Triamcinolone 0.1% Oint 1 applic TOP BID #80 gm 09/08/20 Amox/Clav 875/125 [Augmentin] 1 tab PO Q12H #14 tablet 03/10/21 HYDROcod/ACETAM 5/325 [[place] 5/325] 1 - 2 ea PO Q6H PRN #14 tablet 03/12/21 Sulfamethox/Trimeth 800/160 1 each PO BID #14 tablet 03/12/21 [Bactrim Ds 800/160] - Allergies Allergies/Adverse Reactions: Allergies Allergy/AdvReac Type Severity Reaction Status Date / Time No Known Drug Allergies Allergy Verified 03/20/21 14:44 - Social History Does the pt smoke?: No Smoking Status: Never smoker Does the pt drink ETOH?: Yes Does the pt have substance abuse?: Yes - Immunizations Immunizations are current?: Yes - POLST Patient has POLST: No POLST Status: Full Code PD ED PE NORMAL - Vitals Vital signs reviewed: Yes - General General: Alert and oriented X 3, No acute distress - HEENT HEENT: Moist mucous membranes - Neck Neck: Supple, no meningeal sign - Female Female : Pt declined - Derm Derm: Warm and dry - Neuro Neuro: Alert and oriented X 3 - Psych Psych: Normal mood, Normal affect Results - Vitals Vitals: Vital Signs - 24 hr 03/20/21 14:41 Temperature 36.7 C Heart Rate 80 Respiratory 15 Rate Blood Pressure 139/76 H O2 Saturation 99 Oxygen O2 Source Room air PD MEDICAL DECISION MAKING - ED course Complexity details: considered differential, d/w patient ED course: Patient self swab for bacterial vaginitis and gonorrhea/chlamydia. I will call her when the results are available. She was given a dose of Diflucan here for presumptive vaginal yeast infection. Patient declines a pelvic exam at this narendra e. Patient counseled regarding signs and symptoms for which I believe and urgent re-evaluation would be necessary. Patient with good understanding of and agreement to plan and is comfortable going home at this time This document was made in part using voice recognition software. While efforts are made to proofread this document, sound alike and grammatical errors may occur. Departure - Departure Disposition: 01 Home, Self Care Clinical Impression: Vaginal yeast infection Condition: Good Instructions: ED Vaginal Infec Fungal Jennifer Follow-Up: ELISA MOON DO [Primary Care Provider] - As Needed Comments: The remainder of your testing should be back either tonight or tomorrow. I will call you with your results. If you need additional medications, I will send these to the pharmacy for you. Discharge Date/Time: 03/20/21 15:26
[2021-03-20 17:33] LABS: BACTERIAL VAGINOSIS DNA NEGATIVE (NEGATIVE); CANDIDA GLABRATA DNA NEGATIVE (NEGATIVE); CANDIDA GROUP DNA NEGATIVE (NEGATIVE); CANDIDA KRUSEI DNA NEGATIVE (NEGATIVE); TRICHOMONAS VAGINALIS DNA NEGATIVE (NEGATIVE)
[2021-03-20 21:33] LABS: CHLAMYDIA TRACHOMATIS DNA NEGATIVE (NEGATIVE); NEISSERIA GONORRHOEAE DNA NEGATIVE (NEGATIVE); TRICHOMONAS VAGINALIS DNA NEGATIVE (NEGATIVE)
--- NOTE | 2021-03-21 13:00 | ED Physician Documentation ---
ED Addendum - Addendum Addendum: 03/21/21 12:59 We will continue to treat the patient for candidal yeast infection. A second dose of Diflucan will be sent to the pharmacy for her. Patient called with the results of her bacterial vaginitis panel and STI testing. Departure - Departure Disposition: 01 Home, Self Care Clinical Impression: Vaginal yeast infection Condition: Good Instructions: ED Vaginal Infec Fungal Jennifer Follow-Up: ELISA MOON, [Primary Care Provider] - As Needed Prescriptions: Fluconazole [Diflucan] 1 tablet PO ONCE 1 Days #1 tablet Comments: The remainder of your testing should be back either tonight or tomorrow. I will call you with your results. If you need additional medications, I will send these to the pharmacy for you. Discharge Date/Time: 03/20/21 15:26
== END 2021-03-20 15:26 | disposition home or self-care (01) ==
LOC: ED 14:33
DX: B37.3 Candidiasis of vulva and vagina (principal)
CPT/HCPCS: 87481; 87491; 87591; 87661; 87801; 99282; 99283; A9270

== ENCOUNTER 2022-01-24 16:18 | Emergency (ER) | payer MEDICAID ==
[2022-01-24 16:27] VITALS: BP 138/84
== END 2022-01-24 19:39 | disposition left against medical advice (07) ==
LOC: ED 16:18
DX: Z53.21 Procedure and treatment not carried out due to patient leaving prior to being seen by health care provider (principal)

== ENCOUNTER 2022-07-07 19:42 | Emergency (ER) | payer MEDICAID ==
[2022-07-07 19:51] VITALS: BP 128/65
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
--- NOTE | 2022-07-07 20:35 | XRAY Report ---
PROCEDURE: Ribs w/PA Chest LT INDICATIONS: left rib contusion TECHNIQUE: 4 views of the left ribs were acquired, along with a single view chest. COMPARISON: Rib series 12/10/2019. FINDINGS: Surgical changes and devices: None. Bones and chest wall: No displaced rib fracture identified. No suspicious bony lesions. Overlying s oft tissues appear unremarkable. Lungs and pleura: No pleural effusions or pneumothorax. Lungs appear clear. Mediastinum: Mediastinal contours appear normal. Heart size is normal. IMPRESSION: 1. No displaced rib fracture identified. Reviewed by: Isaiah Hsieh MD on 07/07/2022 8:33 PM PDT Approved by: Isaiha Hsieh MD on 07/07/2022 8:33 PM PDT Station ID: [id number]
== END 2022-07-07 20:44 | disposition home or self-care (01) ==
LOC: ED 19:42
DX: S20.212A Contusion of left front wall of thorax, initial encounter (principal); V27.09XA Other motorcycle driver injured in collision with fixed or stationary object in nontraffic accident, initial encounter; Y93.55 Activity, bike riding; Y92.481 Parking lot as the place of occurrence of the external cause
CPT/HCPCS: 99283

== ENCOUNTER 2022-09-06 04:42 | Outpatient (CLI) | payer MEDICAID | END 2022-09-06 04:43 | disposition critical access hospital (66) | LOC: EMS 04:42 | DX: R11.10 Vomiting, unspecified (principal); F10.90 Alcohol use, unspecified, uncomplicated | CPT/HCPCS: A0425; A0429; A0999 ==

== ENCOUNTER 2022-09-06 05:02 | Emergency (ER) | payer MEDICAID ==
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
[2022-09-06 06:29] LABS: HCG,QUALITATIVE BLOOD NEGATIVE
[2022-09-06 06:49] VITALS: BP 104/67
== END 2022-09-06 06:40 | disposition home or self-care (01) ==
LOC: EDUNIT# → ED 05:02
DX: F10.120 Alcohol abuse with intoxication, uncomplicated (principal); Y90.6 Blood alcohol level of 120-199 mg/100 ml; Z79.899 Other long term (current) drug therapy
CPT/HCPCS: 36415; 80320; 84703; 99283